=== PATIENT | male | born 1940 | race Caucasian/White ===

== ENCOUNTER 2017-09-30 21:27 | Emergency (ER) | payer MEDICARE, BC ==
[2017-09-30] MEDS ORDERED: ASPIRIN 81 MG TABLET, CHEWABLE PO ONE (21:45)
[2017-09-30] MEDS ORDERED: DILTIAZEM HCL INJ 25 MG/5 ML VIAL IV ONE (21:50)
[2017-09-30] MEDS ORDERED: DILTIAZEM HCL INJ 25 MG/5 ML VIAL ONE (21:52)
[2017-09-30] MEDS ORDERED: DILTIAZEM HCL/D5W 0 MG/0 ML RTUINJ IV ONE (21:52)
[2017-09-30 22:23] LABS: ABSOLUTE BASOPHILS # (AUTO) 0.1 10^3/uL (0.0-0.2); ABSOLUTE EOSINOPHILS # (AUTO) 0.1 10^3/uL (0.0-0.6); ABSOLUTE LYMPHOCYTES (AUTO) 1.8 10^3/uL (0.5-4.7); ABSOLUTE NEUT (AUTO) 9.2 10^3/uL (1.7-8.2); BASOPHILS % (AUTO) 0.6 % (0-2); EOSINOPHILS % (AUTO) 0.5 % (0-6); HEMATOCRIT 37.5 % (37.9-51.0); HEMOGLOBIN 12.8 g/dL (13.5-17.0); HGB HCT DIFFERENCE 0.9; LYMPHOCYTES % (AUTO) 14.5 % (13-45); MEAN CORPUSCULAR HEMOGLOBIN 29.6 pg (27.0-33.4); MEAN CORPUSCULAR VOLUME 87 fl (80-97); MONOCYTES % (AUTO) 8.4 % (3-13); RED BLOOD COUNT 4.31 10^6/uL (4.35-5.55); WHITE BLOOD COUNT 12.2 10^3/uL (4.0-10.5)
[2017-09-30 22:31] LABS: PROTHROMBIN TIME 13.4 SEC (11.4-15.4)
[2017-09-30 22:37] LABS: ALANINE AMINOTRANSFERASE 44 U/L (21-72); ALBUMIN 4.5 g/dL (3.5-5.0); ALKALINE PHOSPHATASE 82 U/L (38-126); ANION GAP 17 (5-19); ASPARTATE AMINO TRANSFERASE 33 U/L (17-59); BILIRUBIN,DIRECT 0.5 mg/dL (0.0-0.4); BILIRUBIN,TOTAL 0.8 mg/dL (0.2-1.3); BLOOD UREA NITROGEN 27 mg/dL (7-20); CALCIUM 9.3 mg/dL (8.4-10.2); CARBON DIOXIDE 24 mmol/L (22-30); CHLORIDE 99 mmol/L (98-107); CREATINE KINASE 234 U/L (55-170); CREATININE RESULT 1.89 mg/dL (0.52-1.25); GLUCOSE 150 mg/dL (75-110); POTASSIUM 4.1 mmol/L (3.6-5.0); SODIUM 139.7 mmol/L (137-145); TOTAL PROTEIN 7.7 g/dL (6.3-8.2)
--- NOTE | 2017-09-30 22:41 | RADIOLOGY REPORT (SQ) ---
EXAM DESCRIPTION: CHEST SINGLE VIEW COMPLETED DATE/TIME: 09/30/2017 10:33 pm REASON FOR STUDY: PALPITATIONS COMPARISON: 05/19/2013 EXAM PARAMETERS: NUMBER OF VIEWS: One view. TECHNIQUE: Single frontal radiographic view of the chest acquired. RADIATION DOSE: NA LIMITATIONS: None. FINDINGS: LUNGS AND PLEURA: No acute opacities, masses or pneumothorax. No pleural effusion. MEDIASTINUM AND HILAR STRUCTURES: Stable. HEART AND VASCULAR STRUCTURES: Heart normal in size. Normal vasculature. BONES: No acute findings. HARDWARE: Cardiac defibrillator. OTHER: No other significant finding. IMPRESSION: NO ACUTE RADIOGRAPHIC FINDING IN THE CHEST. TECHNICAL DOCUMENTATION: JOB ID: [id number] [place]-72 2010 [employer]- All Rights Reserved
[2017-09-30 23:02] LABS: CREATINE KINASE MB 5.02 ng/mL (<4.55)
[2017-09-30 23:07] LABS: TROPONIN I 0.075 ng/mL
--- NOTE | 2017-09-30 23:39 | ER Document Report ---
ED General - General Chief Complaint: Chest Pain Stated Complaint: PACEMAKER GOING OFF,POSSIBLE POST OP COMPLICATION Time Seen by Provider: 09/30/17 22:17 Mode of Arrival: Ambulatory Information source: Patient Notes: This is a 77-year-old man with a history of coronary artery disease, atrial fibrillation, with pacemaker and defibrillator, status post recent left femoropopliteal bypass (at [facility]). Patient was released this evening and drove home. He was in [place] in his car driving home when his defibrillator fired twice. He presents to the ER with palpitations in the setting of the pacemaker firing twice. He is noted to be in atrial fibrillation with a rapid ventricular rate (150s- 160s). Patient did stand up to urinate (he was given Lasix at [place] right before discharge). As he was standing to urinate at the side of the bed, patient's heart rate was noted to go up to 188 and he was promptly shocked again by his own pacemaker/defibrillator. This time, he was shocked into a sinus tachycardia. He was given some IV Diltiazem to keep his heart rate down below 110. Patient denies ever having chest pain, except for the actual pain from the defibrillator shock. TRAVEL OUTSIDE OF THE [place] IN LAST 30 DAYS: No - HPI Onset: Just prior to arrival Onset/Duration: Sudden Quality of pain: Dull Severity: Moderate Pain Level: 4 Associated symptoms: denies: Fever, Nausea, Vomiting Exacerbated by: Denies Relieved by: Denies Similar symptoms previously: Yes Recently seen / treated by doctor: Yes - Related Data Allergies/Adverse Reactions: coconut Allergy (Verified 09/30/17 22:16) Penicillins Allergy (Verified 09/30/17 22:16) Past Medical History - General Information source: Patient - Social History Smoking Status: Former Smoker Cigarette use (# per day): No Chew tobacco use (# tins/day): No Frequency of alcohol use: None Drug Abuse: None Lives with: Family Family History: CAD, DM Patient has suicidal ideation: No Patient has homicidal ideation: No - Past Medical History Cardiac Medical History: Reports: Hx Hypercholesterolemia, Hx Hypertension Endocrine Medical History: Reports: Hx Diabetes Mellitus Type 1 Renal/ Medical History: Denies: Hx Peritoneal Dialysis Past Surgical History: Reports: Other - Status post recent left femoropopliteal bypass. Review of Systems - Review of Systems Constitutional: denies: Chills, Fever EENT: No symptoms reported Cardiovascular: See HPI Respiratory: No symptoms reported Gastrointestinal: No symptoms reported Genitourinary: No symptoms reported Male Genitourinary: No symptoms reported Musculoskeletal: No symptoms reported Skin: No symptoms reported Hematologic/Lymphatic: No symptoms reported Neurological/Psychological: No symptoms reported Physical Exam - Vital signs Vitals: Resp 29 H 09/30/17 21:36 Notes: Physical exam: GENERAL: 77-year-old man, alert and oriented 3, initially tachycardic. HEAD: Atraumatic, normocephalic. EYES: Pupils equal round and reactive to light, extraocular movements intact, sclera anicteric, conjunctiva are normal. ENT: TMs normal, nares patent, oropharynx clear without exudates. Moist mucous membranes. NECK: Normal range of motion, supple without obvious mass or JVD. LUNGS: Breath sounds clear to auscultation bilaterally and equal. No wheezes rales or rhonchi. HEART: Initially tachycardic ABDOMEN: Soft, normoactive bowel sounds. No tenderness to palpation. No guarding, no rebound. No masses appreciated. EXTREMITIES: Status post left femoral bypass. Patient has good left dorsal pedal pulse. NEUROLOGICAL: Cranial nerves II through XII grossly intact. Normal speech, moving all extremities. PSYCH: Normal mood, normal affect. SKIN: Status post left femoral bypass Course - Re-evaluation Re-evalutation: 09/30/17 23:43 I discussed case with Dr. Natanael Guerrero who is willing to accept the patient. Currently, there are no beds in the patient is paid put on a wait list. I did discuss this with the patient and the . I have offered to call [facility] for transfer there but they wish to go to [facility]. Dr. Elias requests some IV magnesium. I have allowed the patient to take his own medicines for this evening. We did attempt to interrogate the pacemaker without success. However, as I mentioned in my note, I directly observed that the patient's heart rate was 188 when he was appropriately shocked into normal sinus rhythm. 09/30/17 23:45 - Vital Signs Vital signs: Temp Pulse Resp BP Pulse Ox 16 170/65 H 95 09/30/17 23:20 09/30/17 23:20 11/29/17 23:20 - Laboratory Result Diagrams: 09/30/17 21:50 09/30/17 21:50 Laboratory results interpreted by me: 09/30/17 09/30/17 09/30/17 21:50 21:50 21:50 WBC 12.2 H RBC 4.31 L Hgb 12.8 L Hct 37.5 L Absolute Neutrophils 9.2 H BUN 27 H Creatinine 1.89 H Est GFR ( Amer) 42 L Est GFR (Non-Af Amer) 35 L Glucose 150 H Direct Bilirubin 0.5 H Creatine Kinase 234 H CK-MB (CK-2) 5.02 H - Diagnostic Test Radiology reviewed: Image reviewed, Reports reviewed - Chest x-ray shows no infiltrates or effusions. - EKG Interpretation by Me Rhythm: A.Fib - EKG shows atrial fibrillation with a ventricular rate of 155, nonspecific ST changes. Critical Care Note - Critical Care Note Total time excluding time spent on procedures (mins): 60 Discharge - Discharge Clinical Impression: Atrial fibrillation with a rapid ventric, Status post defibrillation firing Condition: Stable Disposition: [facility] Referrals: JINA ALBARADO MD [Primary Care Provider] - Follow up as needed
[2017-09-30] MEDS: MAGNESIUM SULFATE/D5W 1 GM/100 ML RTUPB IV SCH (23:48)
[2017-10-01] MEDS: MAGNESIUM SULFATE/D5W 1 GM/100 ML RTUPB IV SCH (00:45)
[2017-10-01] MEDS ORDERED: DILTIAZEM HCL INJ 25 MG/5 ML VIAL IV ONE (04:32)
[2017-10-01] MEDS ORDERED: DILTIAZEM HCL/D5W 125 MG/125 ML RTUINJ IV PRN (04:32)
[2017-10-01] MEDS ORDERED: DILTIAZEM HCL INJ 25 MG/5 ML VIAL ONE (04:33)
[2017-10-01] MEDS ORDERED: DILTIAZEM HCL/D5W 125 MG/125 ML RTUINJ IV ONE (04:34)
[2017-10-01] MEDS ORDERED: METOPROLOL TARTRATE PF/INJ 5 MG/5 ML SDV IV ONE (05:16)
--- NOTE | 2017-10-01 07:55 | EKG REPORT ---
SEVERITY:- ABNORMAL ECG - SINUS RHYTHM PROBABLE INFERIOR INFARCT, AGE INDETERMINATE CONSIDER ANTERIOR INFARCT ABNORMAL T, CONSIDER ISCHEMIA, ANT-LAT LEADS : Confirmed by: Russ Luna MD 01-Oct-2017 07:55:00
--- NOTE | 2017-10-01 07:56 | EKG REPORT ---
SEVERITY:- ABNORMAL ECG - ATRIAL FIBRILLATION WITH RAPID V-RATE PROBABLE INFERIOR INFARCT, OLD BORDERLINE R WAVE PROGRESSION, ANTERIOR LEADS REPOLARIZATION ABNORMALITY, PROB RATE RELATED LATERAL LEADS ARE ALSO INVOLVED : Confirmed by: Russ Luna MD 01-Oct-2017 07:56:21
[2017-10-01] MEDS ORDERED: INSULIN REG, HUMAN 100 UNIT/ML 3 ML VIAL (PYX) SUBCUT ONE (17:33)
[2017-10-01] MEDS ORDERED: OXYCODONE HCL IR 5 MG TABLET PO ONE (19:16)
[2017-10-01 19:51] VITALS: BP 189/89
== END 2017-10-01 19:30 | disposition short-term general hospital (02) ==
LOC: ER 21:27
DX: I48.91 Unspecified atrial fibrillation (principal); Z95.810 Presence of automatic (implantable) cardiac defibrillator; Z98.62 Peripheral vascular angioplasty status; I25.10 Atherosclerotic heart disease of native coronary artery without angina pectoris; E11.9 Type 2 diabetes mellitus without complications; I10 Essential (primary) hypertension; Z87.891 Personal history of nicotine dependence; Z91.018 Allergy to other foods; Z88.0 Allergy status to penicillin; Z82.49 Family history of ischemic heart disease and other diseases of the circulatory system
CPT/HCPCS: 93005; 99291; 96375; 96365; 96367; 36415; 82553; 82962; 82550; 83735; 85025; 85610; 80053; 84484; 71010; 93010; J3490 ×4; J3475 ×2; A9270 ×2; J1815

== ENCOUNTER 2020-11-25 22:53 | Emergency (ER) | payer MEDICARE, BC ==
--- NOTE | 2020-11-25 23:34 | ER Document Report ---
ED Medical Screen (RME) - General Stated Complaint: NAUSEA AND VOMITING Time Seen by Provider: 11/25/20 23:26 Primary Care Provider: JINA ALBARADO DO [Primary Care Provider] - Follow up as needed Notes: 80-year-old male presents emergency department with a chief complaint of nausea and vomiting. States that he started vomiting this evening. He was brought in via EMS and was given Zofran. States that he feels better, but still feels a "churning" in his stomach. Patient has history of a triple bypass a year and a half ago. He was also recently at [facility] for stents that were placed in his groins and right leg. Denies any chest pain. Denies any contact with anybody who tested positive for COVID-19. He was recently tested and was negative. Exam: Alert and oriented. I have greeted and performed a rapid initial assessment of this patient. A comprehensive ED assessment and evaluation of the patient, analysis of test results and completion of medical decision making process will be conducted by an additional ED providers. TRAVEL OUTSIDE OF THE [place] IN LAST 30 DAYS: No - Related Data Allergies/Adverse Reactions: coconut Allergy (Verified 09/30/17 22:16) Penicillins Allergy (Verified 09/30/17 22:16) Past Medical History - Past Medical History Cardiac Medical History: Reports: Hx Hypercholesterolemia, Hx Hypertension Endocrine Medical History: Reports: Hx Diabetes Mellitus Type 1 Renal/ Medical History: Denies: Hx Peritoneal Dialysis Past Surgical History: Reports: Hx Cardiac Surgery - pacemaker/defib, Other - Status post recent left femoropopliteal bypass. Physical Exam - Vital signs Vitals: Temp Pulse Resp BP Pulse Ox 98.1 F 78 15 136/73 H 100 11/25/20 23:02 11/25/20 23:02 11/25/20 23:02 11/25/20 23:02 11/25/20 23:02 Course - Vital Signs Vital signs: Temp Pulse Resp BP Pulse Ox 98.1 F 78 15 136/73 H 100 11/25/20 23:02 11/25/20 23:02 11/25/20 23:02 11/25/20 23:02 11/25/20 23:02 Doctor's Discharge - Discharge Referrals: JINA ALBARADO DO [Primary Care Provider] - Follow up as needed
[2020-11-25 23:58] LABS: ABSOLUTE BASOPHILS # (AUTO) 0.1 10^3/uL (0.0-0.2); ABSOLUTE EOSINOPHILS # (AUTO) 0.1 10^3/uL (0.0-0.6); ABSOLUTE LYMPHOCYTES (AUTO) 1.2 10^3/uL (0.5-4.7); ABSOLUTE MONOCYTES (AUTO) 0.6 10^3/uL (0.1-1.4); ABSOLUTE NEUT (AUTO) 9.1 10^3/uL (1.7-8.2); BASOPHILS % (AUTO) 1.2 % (0-2); EOSINOPHILS % (AUTO) 0.5 % (0-6); HEMATOCRIT 33.1 % (37.9-51.0); LYMPHOCYTES % (AUTO) 10.8 % (13-45); MEAN CORPUSCULAR HEMOGLOBIN 28.7 pg (27.0-33.4); MEAN CORPUSCULAR HGB CONC 33.2 g/dL (32.0-36.0); MEAN CORPUSCULAR VOLUME 86 fl (80-97); MONOCYTES % (AUTO) 5.6 % (3-13); PLATELET COUNT 401 10^3/uL (150-450); RED BLOOD COUNT 3.84 10^6/uL (4.35-5.55); RED CELL DISTRIBUTION WIDTH 13.5 % (11.5-14.0); SEGMENTED NEUTROPHILS % (AUTO) 81.9 % (42-78); TOTAL CELLS COUNTED % (AUTO) 100 %; WHITE BLOOD COUNT 11.1 10^3/uL (4.0-10.5)
[2020-11-26 00:19] LABS: ALBUMIN 3.6 g/dL (3.5-5.0); ALKALINE PHOSPHATASE 139 U/L (38-126); ANION GAP 9 (5-19); ASPARTATE AMINO TRANSFERASE 26 U/L (17-59); BILIRUBIN,DIRECT 0.2 mg/dL (0.0-0.4); BILIRUBIN,TOTAL 0.9 mg/dL (0.2-1.3); BLOOD UREA NITROGEN 32 mg/dL (7-20); CALCIUM 9.2 mg/dL (8.4-10.2); CARBON DIOXIDE 29 mmol/L (22-30); CHLORIDE 96 mmol/L (98-107); GLUCOSE 177 mg/dL (75-110); POTASSIUM 3.9 mmol/L (3.6-5.0); TOTAL PROTEIN 6.6 g/dL (6.3-8.2)
--- NOTE | 2020-11-26 00:39 | RADIOLOGY REPORT (SQ) ---
EXAM DESCRIPTION: X-ray single view chest. CLINICAL HISTORY: 80 years Male, vomiting; hx of [place] COMPARISON: 09/30/2017 and 05/19/2013 TECHNIQUE: Single portable x-ray view of the chest performed on 11/26/2020 at 12:11 AM FINDINGS: The lungs are well expanded and are clear. There is no evidence of a pneumothorax. The cardiac silhouette is normal in size and configuration. There are remote postsurgical changes of the mediastinum. The mediastinal contours are normal. No acute osseous abnormality is identified. No acute soft tissue abnormalities are seen. Lines and tubes: There is a grossly stable left subclavian bipolar AICD. Free air: None IMPRESSION: No evidence of acute intrathoracic disease.
[2020-11-26] MEDS ORDERED: ONDANSETRON 4 MG TAB.RAPDIS PO ONE (02:41)
[2020-11-26] MEDS ORDERED: ONDANSETRON ODT 4 MG TAB (6 TAB/ER DISP) PO PRN (02:42)
--- NOTE | 2020-11-26 02:48 | ER Document Report ---
ED GI/ - General Chief Complaint: Nausea/Vomiting Stated Complaint: NAUSEA AND VOMITING Time Seen by Provider: 11/25/20 23:26 Primary Care Provider: JINA ALBARADO DO [ASSOCIATE] - Follow up tomorrow Mode of Arrival: Medic Information source: Patient Notes: 80-year-old male presented to ED for complaint of nausea and vomiting. He states that 8:00 vomiting and he stopped vomiting about 930 last night after EMS came and gave him Zofran IV. He states he has not vomited since then and he is actually felt much better. He states he is pain-free at this time. He states that the last time he went to [facility] they placed him back on Xarelto and whenever he is on Xarelto he does get nausea and vomiting. He does have an extensive cardiac history and surgical history. He states he has not had any chest pain at all throughout this whole episode. I have reviewed his labs and x-ray with him and his daughter. Daughter states she will get him a cardiology appointment today or tomorrow. States he did have a cardiac bypass in [place] about a year and half ago and recently was seen at [facility] to have stents in his groin and right leg with skin grafts. He states he is also had the other leg with stents and skin grafts and has had multiple cardiac surgeries to include pacemaker defibrillator. He states the only symptoms he had tonight was nausea and vomiting that was completely relieved with the first dose of Zofran. Constitutional: Negative for fever. HENT: Negative for sore throat. Eyes: Negative for visual changes. Cardiovascular: Negative for chest pain. Respiratory: Negative for shortness of breath. Gastrointestinal: States he had nausea and vomiting between 8 and 9:30 PM but has had no nausea or vomiting since 9:30 PM when he received his first dose of Zofran. He states at first he had a churning feeling in his stomach but now has no pain or discomfort Genitourinary: Negative for dysuria. Musculoskeletal: Negative for back pain. Skin: Negative for rash. Neurological: Negative for headaches, weakness or numbness. 10 point ROS negative except as marked above and in HPI. VITAL SIGNS: Within normal limits. GENERAL: No acute distress, non-toxic appearance. HEAD: Normal with no signs of head trauma. NECK: Normal range of motion, no tenderness, supple, no lymphadenopathy, No adenopathy, no JVD. CHEST: Clear breath sounds bilaterally. No wheezes, rales, or rhonchi. CARDIAC: Regular rate and rhythm. S1 and S2, without murmurs, gallops, or rubs. VASCULAR: No Edema. Peripheral pulses normal and equal in all extremities. ABDOMEN: Normal and soft with no tenderness, no masses or pulsatile masses. GASTROINTESTINAL: Bowel sounds normal rectal exam completed chaperoned by Judith Monsalve RN GENITOURINARY: Normal, No tenderness LYMPATHTIC: No lymphadenopathy noted. MUSCULOSKELETAL: Good range of motion of all major joints. Extremities without clubbing, cyanosis or edema. NEUROLOGICAL: Alert and oriented x 3. No focal sensory or strength deficits. Speech normal. Follows commands appropriately. PSYCHIATRIC: Normal Affect, judgement and mood. SKIN: Normal appearance with no rashes or lesions. TRAVEL OUTSIDE OF THE [place] IN LAST 30 DAYS: No - HPI Patient complains to provider of: Vomiting - Nausea and vomiting that was dark about 8:52 PM tonight no nausea or vomiting since then. No: Abdominal pain Onset: This evening Timing/Duration: Gone Quality of pain: No pain Severity at maximum: Mild - "Churning "in his stomach at first Severity in ED: None Pain Level: Denies Associated symptoms: Nausea, Vomiting Exacerbated by: Denies Relieved by: Denies Similar symptoms previously: Yes Recently seen / treated by doctor: Yes - Related Data Allergies/Adverse Reactions: coconut Allergy (Verified 09/30/17 22:16) metformin Allergy (Verified 11/26/20 03:09) Penicillins Allergy (Verified 09/30/17 22:16) Home Medications: xarelto. oxycodone Past Medical History - General Information source: Patient - Social History Smoking Status: Former Smoker Chew tobacco use (# tins/day): No Frequency of alcohol use: Rare Drug Abuse: None Lives with: Alone Family History: CAD, DM Patient has suicidal ideation: No Patient has homicidal ideation: No - Past Medical History Cardiac Medical History: Reports: Hx Coronary Artery Disease, Hx Hypercholesterolemia, Hx Hypertension Pulmonary Medical History: Reports: None EENT Medical History: Reports: None Neurological Medical History: Reports: None Endocrine Medical History: Reports: Hx Diabetes Mellitus Type 2 Renal/ Medical History: Reports: Other - Stage III kidney failure Malignancy Medical History: Reports Hx Skin Cancer - Neck GI Medical History: Reports: Hx Colonoscopy, Hx Endoscopy Musculoskeletal Medical History: Reports Hx Musculoskeletal Trauma - Right leg Skin Medical History: Reports None Psychiatric Medical History: Reports: None Traumatic Medical History: Reports: Hx Fractures Infectious Medical History: Reports: None Past Surgical History: Reports: Hx Appendectomy, Hx Cardiac Surgery - pacemaker/defib, multiple cardiac surgeries, Hx Cholecystectomy, Hx Coronary Artery Bypass Graft - Quadruple, Hx Pacemaker - Pacemaker defibrillator, Hx Vascular Surgery - bilateral femoral arterial graft, Other - Skin cancer removed from neck - Immunizations Immunizations up to date: Yes Hx Diphtheria, Pertussis, Tetanus Vaccination: Yes Physical Exam - Vital signs Vitals: Temp Pulse Resp BP Pulse Ox 98.1 F 78 15 136/73 H 100 11/25/20 23:02 11/25/20 23:02 11/25/20 23:02 11/25/20 23:02 11/25/20 23:02 Course - Vital Signs Vital signs: Temp Pulse Resp BP Pulse Ox 97.6 F 69 18 160/65 H 100 11/26/20 03:15 11/26/20 03:15 11/26/20 03:15 11/26/20 03:15 11/26/20 03:15 - Laboratory Results Result Diagrams: 11/25/20 23:38 11/25/20 23:38 Laboratory Results Interpreted: 11/25/20 11/25/20 23:38 23:38 WBC 11.1 H RBC 3.84 L Hgb 11.0 L Hct 33.1 L Lymph % (Auto) 10.8 L Absolute Neuts (auto) 9.1 H Seg Neutrophils % 81.9 H Sodium 134.0 L Chloride 96 L BUN 32 H Creatinine 2.00 H Est GFR ( Amer) 39 L Est GFR (MDRD) Non-Af 32 L Glucose 177 H Alkaline Phosphatase 139 H Critical Laboratory Results Reviewed: No Critical Results - Radiology Results Critical Radiology Results Reviewed: No Critical Results Discharge - Discharge Clinical Impression: Nausea & vomiting Qualifiers: Vomiting type: unspecified Vomiting Intractability: non-intractable Qualified Code(s): R11.2 - Nausea with vomiting, unspecified Condition: Stable Disposition: HOME, SELF-CARE Additional Instructions: VOMITING: Vomiting (or nausea without vomiting) can be caused by many other different problems. It can mean that something's wrong with the stomach, such as ulcers or inflammation or the intestinal tract, such as appendicitis. But it can also be a symptom of a problem that has nothing to do with the stomach or intestines. Vomiting is common with severe headaches, earaches, tonsillitis, and kidney infections, etc. We see it with pneumonia or heart attacks. Drugs can cause nausea and vomiting. Many abdominal problems cause vomiting; for example, gallstones, kidney stones, pancreatitis, and intestinal obstruction (blocked bowels). In most cases, curing the vomiting depends on fixing the problem that caus ed it. For temporary relief, we may use an anti-nausea medicine. For home use, we can prescribe suppositories, chewable pills, pills that dissolve in the mouth, or liquid anti-nausea drugs. If the vomiting seems to be caused by a problem in the stomach, acid-suppressing drugs may be prescribed as well. It's important to avoid dehydration. Sip small amounts of clear liquids (soft drinks, tea, broth, etc) . Try to take fluids frequently even if you are vomiting to prevent dehydration. Take increasing amounts of fluid and when liquids are being consumed successfully, advance to small amounts of bland food (toast, soups, mashed potatoes, etc.) until you are able to resume a regular diet. Avoid aspirin, tobacco, and alcohol. If the vomiting worsens, if the problem that's making you vomit worsens, or if there's evidence of bleeding in the stomach (such as black, tarry stool, or bloody or black vomit), you should return immediately. Also, return if abdominal pain worsens or becomes localized to one area or you develop high fever. Call your doctor if you aren't improved in 24 hours. Have given you a copy of all of your lab work and your x-ray. 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 I did speak with your daughter and she stated she would ensure that you had follow-up scheduled. INTRAVENOUS (I V) FLUIDS: As part of your care today, you received intravenous (IV) fluids. IV fluids are administered to patients who are dehydrated or to those who have certain chemical (electrolyte) abnormalities that need correcting. ANTINAUSEA MEDICATION: You have been given a medication to suppress nausea and vomiting. This type of medication can be given as a shot, pill, or suppository. It will usually last for many hours. Pills and shots usually last six to eight hours. For the typical illness, only one or two doses of the medication may be necessary. Mild lightheadedness may occur. This type of medicine can cause drowsiness. Do not drive or operate dangerous machinery while under its influence. Do not mix with alcohol. See your doctor at once if you have muscle spasms or tightness, or uncontrollable motions (particularly of the neck, mouth, or jaw). Persistent vomiting or severe lightheadedness should also be evaluated by the physician. FOLLOW-UP CARE: If you have been referred to a physician for follow-up care, call the physicians office for an appointment as you were instructed or within the next two days. If you experience worsening or a significant change in your symptoms, notify the physician immediately or return to the Emergency Department at any time for re-evaluation. Forms: Elevated Blood Pressure Referrals: JINA ALBARADO DO [ASSOCIATE] - Follow up tomorrow
[2020-11-26 03:22] VITALS: BP 160/65
--- NOTE | 2020-11-26 06:10 | EKG REPORT ---
SEVERITY:- ABNORMAL ECG - SINUS RHYTHM PROBABLE LVH WITH SECONDARY REPOL ABNRM PROLONGED QT INTERVAL : Confirmed by: Russ Luna MD 26-Nov-2020 06:09:49
--- OUTSIDE RECORDS SUMMARY | 2020-11-28 09:19 | XMS REPORT ---
:1940 Author Organization [facility] Address [facility] [address] [place] [address] Care Team Providers Name Role Phone [facility] Primary Care Physician Unavailable Michelle Ann Attending Clinician Unavailable Michelle Ann Attending Clinician Unavailable Sample, DO A Attending Clinician Unavailable Sample, DO A Attending Clinician Unavailable SHIN Leigh MD Attending Clinician Unavailable Agatha WALL, FAC, [facility] Attending Clinician Unavailable Pedro Attending Clinician Unavailable Pedro Attending Clinician Unavailable MD Joya Snider Attending Clinician Unavailable INDIRA MILLER Attending Clinician Unavailable SHARON PETERSON Attending Clinician Unavailable MD Sasha Pelletier Admitting Clinician Unavailable Sample, DO A Admitting Clinician Unavailable MD Kris F Admitting Clinician Unavailable INDIRA MILLER Admitting Clinician Unavailable SHARON PETERSON Admitting Clinician Unavailable Allergies, Adverse Reactions, Alerts Allergy Allergy Status Severity Reaction(s) Onset Inactive Treating C omments Name Type Date Date Clinician [place] Propensity Inactive High Hives 2016-11 to adverse 1-15 reactions 00:00: 00 Penicillins Propensity Inactive High Swelling 2015-11 to adverse 0-25 reactions 00:00: 00 Penicillins Propensity Active High Swelling 2015-11 to adverse 0-25 reactions 00:00: 00 penicillin Drug Active Severe swelling allergy metFORMIN Drug Active allergy Penicillins Penicillin Active s Medications Ordered Filled Start Stop Current Ordering Indication Dosage Frequency Signature Comments Components Medication Medication Date Date Medication? Clinician (SIG) Name Name potassium Yes 20meq 20 mEq = 1 chloride 20 1-20 tab(s), mEq oral 10:31: PO, Daily, tablet, 00 # 30 extended tab(s), 3 release Refill(s), Pharmacy: [facility] [id number] [facility], 175.2, cm, 11/19/20 5:37:00 EST, Height, 80.1, kg, 11/21/20 4:39:00 EST, Weight sertraline 0 Yes 50mg 50 mg = 1 50 mg oral 1-20 tab(s), tablet 08:58: PO, Daily, 00 # 30 tab(s), 1 Refill(s), Pharmacy: [facility], 175.2, cm, 11/19/20 5:37:00 EST, Height, 80.1, kg, 11/21/20 4:39:00 EST, Weight terazosin 1 0 Yes 2mg 2 mg = 2 mg oral 1-20 cap(s), capsule 08:58: PO, QHS, # 00 60 cap(s), 1 Refill(s), Pharmacy: [facility], 175.2, cm, 11/19/20 5:37:00 EST, Height, 80.1, kg, 11/21/20 4:39:00 EST, Weight Plavix 75 0 Yes 75mg 75 mg = 1 mg oral 1-20 tab(s), tablet 08:57: PO, Daily, 00 # 30 tab(s), 3 Refill(s), Pharmacy: [place] [id number] [facility], 175.2, cm, 11/19/20 5:37:00 EST, Height, 80.1, kg, 11/21/20 4:39:00 EST, Weight Lasix 40 mg Yes 40mg 40 mg = 1 oral tablet 1-20 tab(s), 08:57: PO, Daily, 00 # 30 tab(s), 1 Refill(s), Pharmacy: [facility], 175.2, cm, 11/19/20 5:37:00 EST, Height, 80.1, kg, 11/21/20 4:39:00 EST, Weight oxyCODONE 5 0 Yes 1-2 tabs, mg oral 1-20 PO, q4h, tablet 08:57: as needed 00 for pain, # 42 tab(s), 0 Refill(s), Pharmacy: [facility], 175.2, cm, 11/19/20 5:37:00 EST, Height, 80.1, kg, 11/21/20 4:39:00 EST, Weight Xarelto 20 0 Yes 20mg 20 mg = 1 mg oral 1-20 tab(s), tablet 08:53: PO, qPM, # 00 30 tab(s), 1 Refill(s), Pharmacy: [place] [id number] [facility], 175.2, cm, 11/19/20 5:37:00 EST, Height, 80.1, kg, 11/21/20 4:39:00 EST, Weight Cipro 500 2020-0 2020- Yes 500mg 500 mg = 1 mg oral 1-20 01-27 tab(s), tablet 08:53: 08:53 PO, BID, # 00 :00 14 tab(s), 0 Refill(s), Pharmacy: [place] [id number] [facility], 175.2, cm, 11/19/20 5:37:00 EST, Height, 80.1, kg, 11/21/20 4:39:00 EST, Weight Toprol-XL 0 Yes 100mg 100 mg = 1 100 mg oral 1-20 tab(s), tablet, 08:52: PO, Daily, extended 00 # 30 release tab(s), 1 Refill(s), Pharmacy: [place] [id number] [facility], 175.2, cm, 11/19/20 5:37:00 EST, Height, 80.1, kg, 11/21/20 4:39:00 EST, Weight oxyCODONE 0 Adarsh Birch 1 oxyCODONE HCl - 5 MG -07 Sample HCl - 5 MG Oral Tablet 00:00: D.O. Oral 00 Tablet TAKE 1 TABLET EVERY 4 HOURS NEEDED FOR PAIN. Quantity: 36 Refills: 0 Sample Eyal Rocha Start : 08-Nov-2020 Active Xarelto 20 0 Adarsh Birch 1 QD Xarelto 20 MG Oral 1-07 Sample MG Oral Tablet 00:00: D.O. Tablet 00 TAKE 1 TABLET DAILY Quantity: 21 Refills: 0 Sample Eyal Rocha Start : 08-Nov-2020 Active Victoza 18 0 Yes 1.8mg 1.8 mg, 0 mg/3 mL -06 Refill(s) subcutaneou 10:09: s solution 00 NovoLOG 100 2020-0 Yes 51 5 unit(s), units/mL -06 0 injectable 10:08: Refill(s) soln 00 empaglifloz Yes 10mg 10 mg = 1 in 10 mg 1-06 tab(s), oral tablet 10:07: PO, 00 qBreakfast , # 30 tab(s), 0 Refill(s) cholecalcif Yes 0 marco antonio 1000 1-06 Refill(s) intl units 10:04: (25 mcg) 00 oral capsule Lantus Yes 401 40 Solostar 1-05 unit(s), Pen 100 12:39: Subcutaneo units/mL 00 us, Daily subcutaneou s solution methocarbam Yes 1000mg 1,000 mg = ol 500 mg 1-05 2 tab(s), oral tablet 12:39: PO, BID 00 melatonin 5 2019-11 No 5mg 5 mg = 1 mg oral 0-22 tab(s), tablet 14:14: PO, QHS, 00 for insomnia Toprol-XL 2019-11 No 200mg 200 mg = 1 200 mg oral 0-22 tab(s), tablet, 14:14: PO, Daily extended 00 release aspirin 81 2019-11 No 81mg 81 mg = 1 mg oral 0-22 tab(s), delayed 14:13: PO, Daily release 00 tablet atorvastati 2019-11 Yes 80mg 80 mg = 1 n 80 mg 0-22 tab(s), oral tablet 14:13: PO, Daily 00 amLODIPine 2019-11 No 5mg 5 mg = 0.5 10 mg oral 0-22 tab(s), tablet 14:12: PO, Daily 00 Atorvastati Yes Jakob 1 Atorvastat n Calcium 6-11 Eyal NICHOLSON in Calcium 80 MG Oral 00:00: 80 MG Oral Tablet 00 Tablet TAKE 1 TABLET AT BEDTIME. Quantity: 30 Refills: 5 Eyal NICHOLSON Jakob Start : 9Active Melatonin 5 No Jakob Melatonin MG Oral 6-11 Eyal PA-C 5 MG Oral Tablet 00:00: Tablet 00 TAKE 1 TAB BY MOUTH AT BEDTIME Refills: 0 Eyal NICHOLSON Jakob Start : 9Active rosuvastati No 20mg 20 mg = 1 n 20 mg 4-24 tab(s), oral tablet 18:28: PO, QHS, 0 00 Refill(s) traMADol 50 No 1-2 tabs, mg oral 4-24 PO, TID, tablet 18:28: Pain, 00 moderate (Level 3-8), 0 Refill(s) amLODIPine No 10mg 10 mg = 1 10 mg oral 4-24 tab(s), tablet 18:25: PO, Daily, 00 0 Refill(s) Lantus 100 No 421 See units/mL -24 Instructio insulin(inp 18:24: ns, 40 atient) 00 unit(s) Subcutaneo us Daily, 0 Refill(s) metoprolol No 100mg 100 mg = 1 succinate 4-22 cap(s), 100 mg oral 05:41: PO, BID, 0 capsule, 00 Refill(s) extended release isosorbide No 30mg 30 mg = 1 mononitrate 4-22 tab(s), 30 mg oral 05:39: PO, qAM, # tablet, 00 30 tab(s), extended 0 release Refill(s) empaglifloz No 10mg 10 mg = 1 in 10 mg 4-22 tab(s), oral tablet 05:37: PO, 00 qBreakfast , # 30 tab(s), 0 Refill(s) Tikosyn 250 No 250ug 250 mcg = mcg oral 02-21 1 cap(s), capsule 05:35: PO, BID, # 00 180 cap(s), 0 Refill(s) Plavix 75 No 75mg 75 mg = 1 mg oral 4-22 tab(s), tablet 05:33: PO, Daily, 00 # 30 tab(s), 0 Refill(s) Vitamin D3 No 1000[iU 1,000 1000 intl 06-04 ] Internatio units oral 11:54: nal_Unit(s capsule 00 ) = 1 cap(s), PO, Daily nitroglycer Yes .4mg 0.4 mg = 1 in 0.4 mg 8-03 tab(s), sublingual 11:53: Sublingual tablet 00 , q5min, for chest pain Zantac 150 No 150mg 150 mg = 1 oral tablet 8-03 tab(s), 11:53: PO, BID, 00 Indigestio n Eliquis 5 No 5mg 5 mg = 1 mg oral 8-03 tab(s), tablet 11:47: PO, BID 00 Lasix 20 mg No 20mg 20 mg = 1 oral tablet 8-03 tab(s), 11:47: PO, Daily 00 Toprol XL 2017- Yes QD Toprol XL 200 MG Oral 6-05 200 MG Tablet 00:00: Oral Extended 00 Tablet Release 24 Extended Hour Release 24 Hour TAKE 1 TABLET ONCE DAILY. Refills: 0 Start : 06-Apr-2018 Active warfarin 2017- No 5mg Take 5 mg Take 5 mg (COUMADIN) 11-1211 by mouth by johana th 5 MG tablet 14:48: 00:00 Take as Take as 37 :00 directed. directed. Every day Every day except except Thursday and and Thursday. Thursday. enoxaparin 2016-11 No 90MG Inject 0.6 Inj ect (LOVENOX) 12-03 12-05 mL (90 mg 0.6 mL 150 mg/mL 00:00: 23:59 total) (90 mg injection 00 :00 under the total) skin every under the twelve skin (12) every hours. for twelve 4 days (12) hours. for 4 days oxyCODONE 2016-11- No 5MG Take 1 Take 1 (ROXICODONE 11-30 12-06 tablet (5 tabl et (5 ) 5 MG 00:00: 23:59 mg total) mg total ) immediate 00 :00 by mouth by mout h release every every tablet thirty thirty (30) (30) minutes as minutes needed. as for up to needed. 7 days for up to 7 days warfarin 2016-11 No 7.5mg Take 7.5 Take 7. 5 (COUMADIN) 11-29 01-11 mg by mg by 7.5 MG 15:34: 00:00 mouth mouth tablet 40 :00 Every Every Thursday and and Thursday. Thursday. warfarin 2016-11 No 7.5MG Take 7.5 Take 7. 5 (COUMADIN) 1-22 11-22 mg by mg by 5 MG tablet 16:51: 00:00 mouth Take mo uth 09 :00 as Take as directed. directed. Thursday and and Thursday. Thursday. enoxaparin 2016-11- No Inject Inject (LOVENOX) 1-22 11-29 under the under the 150 mg/mL 09:19: 00:00 skin every skin injection 54 :00 twelve every (12) twelve hours. (12) hours. dofetilide 2016-11 No 250ug Take 250 Take 250 (TIKOSYN) 1-15 mcg by mcg by 250 MCG 11:02: mouth Two mouth T wo capsule 29 (2) times (2) time s a day. a day. ranitidine 2016-11 No 300mg Take 300 Take 300 (ZANTAC) 1-15 mg by mg by 150 MG 11:02: mouth mouth tablet 29 daily as daily as needed for needed heartburn. for heartburn . sotalol 2016-11- No 80mg Take 80 mg Take 8 0 (BETAPACE) 1-15 11-15 by mouth mg by 80 MG 11:01: 00:00 daily. mouth tablet 57 :00 daily. furosemide 2016-11 No 20mg Take 20 mg Richard e 20 (LASIX) 20 1-15 by mouth mg by MG tablet 10:59: daily. mouth 18 daily. insulin 2016-11 No 15U Inject 15 Inject 15 aspart 1-15 Units Units (NOVOLOG 10:59: under the under the FLEXPEN) 17 skin Take skin Ta ke 100 unit/mL as as injection directed. direct ed. pen Before Before lunch and lunch and dinner. dinner. Furosemide 2016-11 Adarsh Winslow Furosemide 20 MG Oral 0-16 Russ D.O. 20 MG Oral Tablet 00:00: Tablet 00 Take 1 tablet by mouth daily Quantity: 30 Refills: 3 Russ D.OGoldy Hwang Start : 7Active amitriptyli Yes 25mg 25 mg = 1 ne 25 mg -09 tab(s), oral tablet 11:10: PO, QHS, # 00 180 tab(s), 0 Refill(s) sertraline No 50mg 50 mg = 100 mg oral 09 0.5 tablet 11:05: tab(s), 00 PO, Daily, # 30 tab(s), 0 Refill(s) terazosin 2 No 2mg 2 mg = 1 mg oral 09 cap(s), capsule 11:04: PO, QHS, # 00 30 cap(s), 0 Refill(s) methocarbam 1000mg 1,000 mg = ol 500 mg 11-10 2 tab(s), oral tablet 11:02: 11:02 PO, BID, 00 :00 muscle spasms, # 80 tab(s), 0 Refill(s) sodium 2015-11 No 50mL/h Sodium chloride -21 Chloride (NS) 0.9 % 11:00: 0.9 % infusion 00 Intravenou s Solution amLODIPine 2015-11 No 5MG Take 5 mg Take 5 mg (NORVASC) 5 1-21 by mouth by mo uth MG tablet 10:45: daily. daily. 35 Takes 1/2 Takes 1/2 tab daily tab daily cholecalcif 2015-11 No 1000U Take 1,000 Ta ke marco antonio, 1-21 Units by 1,000 vitamin D3, 10:45: mouth Units b y (VITAMIN 35 daily. mouth D3) 1,000 daily. unit capsule insulin 2015-11 No 30U Inject 30 Inject 30 glargine 1-21 Units Units (LANTUS 10:45: under the under t he SOLOSTAR) 35 skin skin 100 unit/mL daily. daily. (3 mL) injection pen insulin 2015-11 Yes 40U Inject 40 Inject 40 glargine 1-21 Units Units (LANTUS 10:45: under the under t he SOLOSTAR) 35 skin skin 100 unit/mL daily. daily. (3 mL) injection pen cholecalcif 2015-11 Yes 1000U Take 1,000 Ta ke marco antonio, 1-21 Units by 1,000 vitamin D3, 10:45: mouth Units b y (VITAMIN 35 daily. mouth D3) 1,000 daily. unit capsule amLODIPine 2015-11 Yes 2.5mg Take 2.5 Take 2.5 (NORVASC) 5 1-21 mg by mg by MG tablet 10:45: mouth mouth 35 daily. daily. isosorbide 2015-11 No 30mg Take 30 mg Richard e 30 mononitrate 1-21 11-21 by mouth mg by (IMDUR) 30 10:45: 00:00 daily. mouth MG 24 hr 29 :00 daily. tablet gabapentin 2015-11 No 300mg Take 300 Take 300 (NEURONTIN) 1-21 11-21 mg by mg by 300 MG 10:38: 00:00 mouth mouth capsule 36 :00 nightly. nightly. aspirin 2015-11 No 81MG Take 81 mg Take 8 1 (ECOTRIN) 0-26 by mouth mg by 81 MG 10:43: daily. mouth tablet 00 daily. atorvastati 2015-11 No 80MG Take 80 mg Ta ke 80 n (LIPITOR) 0-26 by mouth mg by 80 MG 10:43: daily. 1/2 mouth tablet 00 tablet daily. 1/2 tablet atorvastati 2015-11 Yes 40mg Take 40 mg Ta ke 40 n (LIPITOR) 0-26 by mouth mg by 80 MG 10:43: daily. mouth tablet 00 daily. aspirin 2015-11- No 81mg Take 81 mg Take 8 1 (ECOTRIN) 0-26 11-29 by mouth mg by 81 MG 10:43: 00:00 daily. mouth tablet 00 :00 daily. clopidogrel 2015-11 No 75MG Take 75 mg Ta ke 75 (PLAVIX) 75 0-25 by mouth mg by mg tablet 11:28: daily. mouth 06 daily. HYDROcodone 2015-11 No 1{tbl} Q6H Take 1 Take 1 -acetaminop 0-25 tablet by tabl et by elissa (NORCO 11:28: mouth mouth 10-325) 06 every six every si x 10-325 mg (6) hours (6) ho urs per tablet as needed as ne eded for pain. for pain. insulin 2015-11 No Inject Inject aspart 0-25 under the under the (NOVOLOG 11:28: skin Three skin FLEXPEN) 06 (3) times Three ( 3) 100 unit/mL a day times a injection before day pen meals. before meals. methocarbam 2015-11 No 500MG Take 500 Take 500 ol 0-25 mg by mg by (ROBAXIN) 11:28: mouth Two mouth Two 500 MG 06 (2) times (2) times tablet a day. a day. rosuvastati 2015-11 No 10MG Take 10 mg Ta ke 10 n (CRESTOR) 0-25 by mouth mg by 10 MG 11:28: daily. mouth tablet 06 daily. terazosin 2015-11 No 2MG Take 2 mg Take 2 mg (HYTRIN) 2 0-25 by mouth by johana th MG capsule 11:28: nightly. night ly. 06 rivaroxaban 2015-11 No 20MG Take 20 mg Ta ke 20 (XARELTO) 0-25 by mouth mg by 20 mg 11:28: daily with mouth tablet 06 evening daily meal. with evening meal. methocarbam 2015-11 Yes 500mg Take 500 Take 500 ol 0-25 mg by mg by (ROBAXIN) 11:28: mouth Two mouth Two 500 MG 06 (2) times (2) times tablet a day. a day. HYDROcodone 2016 Yes 1{tbl} Q6H Take 1 Take 1 -acetaminop 0-25 tablet by tabl et by hen (NORCO 11:28: mouth mouth 10-325) 06 every six every si x 10-325 mg (6) hours (6) ho urs per tablet as needed as ne eded for pain for pain (back (back pain). pain). insulin 2015-11 Yes 12U Inject 12 Inject 12 aspart 0-25 Units Units (NOVOLOG 11:28: under the under the FLEXPEN) 06 skin every skin 100 unit/mL morning every injection before morning pen breakfast. before breakfast . rosuvastati 2015-11 Yes 10mg Take 10 mg Ta ke 10 n (CRESTOR) 0-25 by mouth mg by 10 MG 11:28: daily. mouth tablet 06 daily. terazosin 2015-11 Yes 2mg Take 2 mg Take 2 mg (HYTRIN) 2 0-25 by mouth by johana th MG capsule 11:28: nightly. night ly. 06 clopidogrel 2015-11 Yes 75mg Take 75 mg Ta ke 75 (PLAVIX) 75 0-25 by mouth mg by mg tablet 11:28: daily. mouth 06 daily. rivaroxaban 2015-11 2017- No 20mg Take 20 mg Ta ke 20 (XARELTO) 0-25 11-02 by mouth mg by 20 mg 11:28: 00:00 daily with mouth tablet 06 :00 evening daily meal. with evening meal. amitriptyli 2015-11 No 25MG Take 25 mg Ta ke 25 ne (ELAVIL) 0-25 by mouth mg by 25 MG 11:28: daily. As mouth tablet 05 directed daily. As directed sertraline 2015-11 No 50MG Take 50 mg Richard e 50 (ZOLOFT) 0-25 by mouth mg by 100 MG 11:28: daily. mouth tablet 05 daily. nitroglycer 2015-[address] 0.4 Lenny ce 0.4 in 0-25 mg under mg under (NITROSTAT) 11:28: the tongue th e 0.4 MG SL 05 every five tongu e tablet (5) every minutes as five (5) needed for minutes chest as needed pain. for chest pain. nitroglycer 2015-[address] 0[address]4 Lenny ce 0.4 in 0-25 mg under mg under (NITROSTAT) 11:28: the tongue th e 0.4 MG SL 05 every five tongu e tablet (5) every minutes as five (5) needed for minutes chest as needed pain. for chest pain. sertraline 2015-11 Yes 50mg Take 50 mg Richard e 50 (ZOLOFT) 0-25 by mouth mg by 100 MG 11:28: daily. mouth tablet 05 daily. amitriptyli 2015-11 Yes 25mg Take 25 mg Ta ke 25 ne (ELAVIL) 0-25 by mouth mg by 25 MG 11:28: daily. As mouth tablet 05 directed daily. As directed lisinopril 2015-11 No 40MG Take 40 mg Richard e 40 (PRINIVIL,Z 0-25 by mouth mg by ESTRIL) 40 11:09: daily. As mout h MG tablet 03 directed daily. As directed sotalol 2015-11 No 120MG Take 120 Take 120 (BETAPACE) 0-25 mg by mg by 80 MG 11:09: mouth Two mouth Two tablet 03 (2) times (2) times a day. a day. sotalol 2015-11 No 120MG Take 120 Take 120 (BETAPACE) 0-25 mg by mg by 80 MG 11:09: mouth Two mouth Two tablet 03 (2) times (2) times a day. a day. lisinopril 2015-11 2017- No 40mg Take 40 mg Richard e 40 (PRINIVIL,Z 0-25 11-29 by mouth mg by ESTRIL) 40 11:09: 00:00 daily. As mout h MG tablet 03 :00 directed daily. As directed Terazosin 2014-11 Yes Goldy Terazosin HCl - 2 MG 0-02 Aiea D.O. HCl - 2 MG Oral 00:00: Oral Capsule 00 Capsule TAKE 1 CAPSULE AT BEDTIME NIGHTLY. Quantity: 30 Refills: 0 Russ Rocha Goldy Start : 03-Aug-2015 Active Lantus Yes Lantus SoloStar -24 SoloStar 100 UNIT/ML 00:00: 100 Subcutaneou 00 UNIT/ML s Solution Subcutaneo Pen-injecto us r Solution Pen-inject or Inject 40 units daily Refills: 0 Start : 4Active 3 ML Pen BD Pen Yes BD Pen Needle Mini 5-08 Needle U/F 31G X 5 00:00: Mini U/F MM 00 31G X 5 MM Quantity: 100 Refills: 0 Start : 09-Mar-2014 Active Nitrostat Yes Nitrostat 0.4 MG 4-17 0.4 MG Sublingual 00:00: Sublingual Tablet 00 Tablet Sublingual Sublingual Quantity: 25 Refills: 0 Start : 4Active Sertraline Yes QD Sertraline HCl - 100 HCl - 100 MG Oral MG Oral Tablet Tablet TAKE 1/2 TABLET DAILY. Refills: 0 Active Amitriptyli Yes QD Amitriptyl ne HCl - 25 ine HCl - MG Oral 25 MG Oral Tablet Tablet TAKE 1 TABLET DAILY DIRECTED. Refills: 0 Active Methocarbam Yes 2 Q0.5D Methocarba ol 500 MG mol 500 MG Oral Tablet Oral Tablet TAKE 2 TABLET TWICE DAILY Refills: 0 Active amLODIPine Yes .5 QD amLODIPine Besylate 10 Besylate MG Oral 10 MG Oral Tablet Tablet TAKE 0.5 TABLET DAILY Refills: 0 Active Vitamin D3 Yes 1 QD Vitamin D3 25 MCG 25 MCG (1000 UT) (1000 UT) Oral Tablet Oral Tablet TAKE 1 TABLET DAILY. Refills: 0 Active Eliquis 5 No Shaniqua Eliquis 5 MG Oral Agatha WALL, MG Oral Tablet GABO, MERLYN Tablet 1 tab po bid Quantity: 60 Refills: 6 Agatha WALL, GABO, FABRICIO, Shaniqua Active raNITIdine Yes raNITIdine HCl 150 MG HCl 150 MG TABS TABS TAKE 1 ONCE OR TWICE A DAY NEEDED FOR INDIGESTIO N Quantity: 30 Refills: 11 Active Jardiance No 1 QD Jardiance 10 MG Oral 10 MG Oral Tablet Tablet TAKE 1 TABLET BY MOUTH ONCE DAILY Refills: 0 Active Aspirin EC Yes 1 QD Aspirin EC Lo-Dose 81 Lo-Dose 81 MG TBEC MG TBEC TAKE 1 TABLET DAILY. Refills: 0 Active Problems Condition Condition Condition Status Onset Resolution Last Treatin g Comments Name Details Category Date Date Treatment Clinician Date PAD PAD Problem Inactiv [id number] (peripheral (peripheral e 11-11 14:54:45 artery artery 00:00: disease) disease) 00 (NATASHA-HCC) (NATASHA-HCC) Pain in Pain in Problem Inactiv [id number] both lower both lower e 0- 11:55:06 extremities extremities 00:00: 00 Pain in Pain in [id number] Active 2015-112016-08-27 both lower both lower 0- 11:55:06 extremities extremities 00:00: 00 Fluid Fluid Problem suspend Problem balance management( ed adde d regulation Confirmed)9 a utomatic (procedure) ally by system based on initiati o n of the Fluid Manageme n t Plan o f Care. Alteration Alteration Problem active Pr oblem in comfort: in comfort: added pain pain(Confir auto matic (finding) med)1 ally b y system based on initiati o n of the Alterati o n in comfort: Pain lenny n of Care. Decreased Decreased Problem active Prob doc cardiac cardiac added output output(Conf auto matic (finding) irmed)5 ally b y system based on initiati o n of the Decrease d Cardiac Output Plan of Care. Deficient Deficient Problem active Prob doc knowledge knowledge(C ad ded (finding) onfirmed)6 aut omatic ally by system based on initiati o n of the Knowledg e Deficit Plan of Care. At risk for Fall Problem active Prob doc falls risk(Confir adde d (finding) med)8 automa tic ally by system based on initiati o n of the Fall Ris k Plan of Care. Discharge Discharge Problem active Prob doc planning planning(Co add ed (procedure) nfirmed)7 au tomatic ally by system based on initiati o n of the Discharg e Planning Plan of Care Impaired Impaired Problem active Proble m mobility mobility(Co add ed (finding) nfirmed)10 aut omatic ally by system based on initiati o n of the Bowel Dysfunct i on Plan of Care. Total Self -care Problem active Probl em self-care deficit(Con ad ded deficit firmed)11 automa tic (finding) ally b y system based on initiati o n of the Self Car e Deficit Plan of Care. Alteration Alteration Problem suspend Pr oblem in in ed added nutrition nutrition(C au tomatic (finding) onfirmed)2 all y by system based on initiati o n of the Fall Ris k Plan of Care. Angiography Angiography Problem suspend of lower of lower ed extremity extremity arteries, arteries, bilateral bilateral(C (procedure) onfirmed) Bowel Bowel Problem suspend Problem dysfunction dysfunction ed added (disorder) (Confirmed) a utomatic 4 ally by system based on initiati o n of the Bowel Dysfunct i on Plan of Care. Bradycardia Bradycardia Problem suspend (disorder) (Confirmed) ed At risk of At risk for Problem active P roblem infection infection(C ad ded (finding) onfirmed)3 aut omatic ally by system based on initiati o n of the At Risk for Infectio n Plan of Care. 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 LV (left LV (left Problem Active ventricular ventricular ) mural ) mural thrombus thrombus High risk High risk Problem Active medication medication use use Coronary Coronary Problem Active artery artery stenosis stenosis Fatigue Fatigue Problem Active Intermitten Intermitten Problem Active t t claudicatio claudicatio n n Typical Typical Problem Active atrial atrial flutter flutter Dyspnea Dyspnea Problem Active 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 [place] coronary coronary artery of artery of [place] heart with heart with stable stable angina angina pectoris pectoris Peripheral Peripheral Problem Active arterial arterial disease disease 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 bypass graft of graft of [place] heart heart without without angina angina pectoris pectoris Cardiomyopa Cardiomyopa Problem Active thy, thy, dilated dilated Benign Benign Problem Active essential essential hypertensio hypertensio n n Dyslipidemi Dyslipidemi Problem Active a a Paroxysmal Paroxysmal Problem Active atrial atrial fibrillatio fibrillatio n n 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 diabetes mellitus mellitus ICD ICD Problem Active (implantabl (implantabl e e cardioverte cardioverte r-defibrill r-defibrill ator) in ator) in place place Procedures Procedure Date / Time Performed Performing Clinician Devic e Bypass Femoral Popliteal Tibial 2020-11-16 09:03:00 IPO (Right)1 Basic Metabolic Panel(BMP) 2020-11-08 00:00:00 CBC 2020-11-08 00:00:00 Magnesium 2020-11-08 00:00:00 PT-INR 2020-11-08 00:00:00 Basic Metabolic Panel - 2020-10-23 00:00:00 Hospital Only CBC - Hospital Only 2020-10-23 00:00:00 Magnesium - Hospital Only 2020-10-23 00:00:00 PT - Hospital Only 2020-10-23 00:00:00 EKG 2020-10-23 00:00:00 DP-Bilateral LE Arterial Duplex 2020-10-23 00:00:00 DP-Bilaterial CHRIS 2020-10-23 00:00:00 EKG 2020-09-04 00:00:00 Basic Metabolic Panel(BMP) 2020-08-02 00:00:00 Magnesium 2020-08-02 00:00:00 PT-INR 2020-08-02 00:00:00 CBC 2020-08-02 00:00:00 EKG 2020-08-02 00:00:00 PVL CHRIS 2017-11-12 19:24:50 Moreno Miller ARTERIOGRAM LOWER EXTREMITY 2017-09-23 12:10:13 Lydia Miller BILATERAL PVL VEIN MAPPING LOWER 2016-10-09 16:37:19 Moreno Miller eph EXTREMITY BILATERAL ARTERIOGRAM ABDOMEN 2016-09-22 13:58:51 PVL ARTERIAL DUPLEX LOWER 2016-08-27 19:41:40 Paulina Mendosa ns EXTREMITY BILATERAL pacemaker/defib 2013-05-20 00:00:00 right femoral stent Appendectomy Cholecystectomy Rt IHR (age 10 and 22) x2 Rt testicle removed Stented coronary artery, RCA, LAD, tonsillectomy CABG - Coronary artery bypass graft CABG - Coronary artery bypass graft History of Cath Stent Placement History of Appendectomy History of Cholecystectomy History of Implantable Cardioverter-Defibrillator Results Test Description Test Time Test Comments Text Results Atomic Results Result Comments Whole Blood Glucose 2020-11-21 08:16:00 Test Item Value Reference Range Comments Whole Blood Glucose (test code = Whole Blood Glucose) 248 mg/dL 74-106 POC [id number] 07:30:00 Test Item Value Reference Range Comments POC Glucose (test code = POC Glucose) Done Charted BUN,Sodium Lvl,Potassium Lvl,Chloride,CO2,Glucose Lvl,Creatinine,Calcium Lvl,BUN/CR Ratio,Anion Gap,2020-11-21 04:08:00 Test Item Value Reference Range Comments BUN (test code = BUN) 23 mg/dL 9-23 Sodium Lvl (test code = Sodium 139 mmol/L 136-145 Lvl) Potassium Lvl (test code = 3.2 mmol/L 3.4-5.1 Potassium Lvl) Chloride (test code = 109 mmol/L 98-107 Chloride) CO2 (test code = CO2) 23.0 mmol/L 20-31 Glucose Lvl (test code = 78 mg/dL 74-106 Result Comment: Glucose Lvl) GLUCOSE-RECHECKE D Creatinine (test code = 1.68 mg/dL 0.70-1.30 Creatinine) Calcium Lvl (test code = 8.0 mg/dL 8.7-10.4 Calcium Lvl) BUN/CR Ratio (test code = 14 BUN/CR Ratio) Anion Gap (test code = Anion 7 4-18 Gap) Calc Osmol (test code = Calc 280 1 Osmol) GFR Non (test 42.21 code = GFR Non ) GFR (test 51.08 code = GFR ) WBC,RBC,Hgb,Hct,MCV (MCV),MCH (HCH),MCHC (MCHC),RDW (RDW),Platelet,[id number] 17:19:00 Test Item Value Reference Range Comments WBC (test code = WBC) 9.3 1 4.8-10.8 RBC (test code = RBC) 2.96 1 4.70-6.10 Hgb (test code = Hgb) 8.7 1 14.0-18.0 Hct (test code = Hct) 26.0 % 40.0-54.0 MCV (MCV) (test code = MCV (MCV)) 87.8 fL 80-94 MCH (HCH) (test code = MCH (HCH)) 29.4 pg 27-34 MCHC (MCHC) (test code = MCHC (MCHC)) 33.5 % 31.5-36.0 RDW (RDW) (test code = RDW (RDW)) 12.8 % 11.5-14.5 Platelet (test code = Platelet) 153 1 130-400 MPV (test code = MPV) 12.0 fL 7.4-10.4 Neutro Percent,Lymph Percent,Valencia Percent,Eos Percent,Basophil Percent,Neut Absolute,Lymphs [id number] 01:32:00 Test Item Value Reference Range Comments Neutro Percent (test code = Neutro Percent) 66.8 % 34.6 -71.4 Lymph Percent (test code = Lymph Percent) 19.3 % 19.6-5 2.7 Valencia Percent (test code = Valencia Percent) 9.7 % 2.4-11.8 Eos Percent (test code = Eos Percent) 3.2 % 0-7.8 Basophil Percent (test code = Basophil Percent) 0.7 % 0-1.8 Neut Absolute (test code = Neut Absolute) 6.1 1 1.8-7. 3 Lymphs Absolute (test code = Lymphs Absolute) 1.8 1 1. 5-4.0 Valencia Absolute (test code = Valencia Absolute) 0.9 1 0.2-1. 0 Eos Absolute (EOSA) (test code = Eos Absolute (EOSA)) 0.3 1 0-0.7 Baso Absolute (BASOA) (test code = Baso Absolute 0.1 1 0.0-0.2 (BASOA)) Magnesium [id number] 04:00:00 Test Item Value Reference Range Comments Magnesium Lvl (test code = Magnesium Lvl) 2.2 mg/dL 1.60-2 .60 [id number] 04:00:00 Test Item Value Reference Range Comments MRSA-PCR (test code = NEGATIVE Result Com ment: MRSA SCREEN- MRSA MRSA-PCR) SCREEN-A positiv e test result does not necessa rily indicate the presence of viab le organisms but is presumptive f or MRSA. MRSA SCREEN-Results s hould be used to identify patient s needing enhanced precaut ions and should not be used to g uide or monitor treatment for MR SA infections. Bili Total,Alk Phos,AST,ALT,Total Protein,Albumin Lvl,Globulin,Albumin/Globulin [id number] 02:47:00 Test Item Value Reference Range Comments Bili Total (test code = Bili Total) <0.2 0.2-1.2 Alk Phos (test code = Alk Phos) 127 1 46-116 AST (test code = AST) 36 1 15-34 ALT (test code = ALT) 38 1 10-49 Total Protein (test code = Total Protein) 5.9 1 5.7-8. 2 Albumin Lvl (test code = Albumin Lvl) 3.1 1 3.4-5.0 Globulin (test code = Globulin) 2.8 1 1.5-4.5 Albumin/Globulin Ratio (test code = Albumin/Globulin 1.1 1.1-1.8 Ratio) [id number] 22:42:00 Test Item Value Reference Range Comments PTT (test code = PTT) 78.9 s 22.5-28.6 ID NOW Covid [id number] 00:24:00 Test Item Value Reference Range Comments ID NOW Covid 19 (test COVID-19 NEGATIVE Result C omment: ID NOW code = ID NOW Covid COVID1-Th is result does 19) not rule out co- infections with other patho gens. False negative results may occur if a specimen is im properly collected, trans ported or handled. False n egative results may also occur if amplification in hibitors are present in the s pecimen or if inadequate level s of viruses are present in t he specimen. Negative results should be considered in th e context of a patient's rece nt exposures, history and the presence of clinical signs a nd symptoms consistent with COVID-1. This assay is only in tended for use under the od and Drug Administration's (FDA) Emergency Use Authorization(EU A). Terms of use require that the following Fact S heets be provided with is test report: --[employer] ID NOW COVID 1 f or Providers --[facility] ID NOW COVID 1 for Sena ents These Fact Sheets can be accessed at: http:www.[facility]ernhomedu ml-ddlpevnbr-bxt -COVID-1.html SARS-CoV-2 RdRp Resp QI [id number] 00:00:00 Test Item Value Reference Range Comments SARS-CoV-2 RdRp Resp QI Negative [place] Covid Public Health Case ID: LYLA+probe (test code = COVID_104 [id number]) Type and Screen (Convertible)2020-11-14 21:50:00 Test Item Value Reference Range Comments Type and Screen TYPE AND SCREEN (CONVERTIBLE) (Convertible) (test code = C97181 Date Specimen Type and Screen Received By Lab: @[id number] (Convertible)) BLOOD COMPONENT TYPE RED CELL GROUP NUMBER OF UNITS ORDERED 2 CROSSMATCH EXPIRATION 11/17/2020 ABO/RH(D) A ABO/RH(D) POSITIVE ANTIBODY SCREEN NEGATIVE TS CONVERTED TO XM TYSC CONV. TO CXM ARM BAND NUMBER [id number] TYSC TO CXM TYSC TO CXM PT,[id number] 21:47:00 Test Item Value Reference Range Comments PT (test code = PT) 12.7 s 9.7-11.3 INR (test code = INR) 1.2 0.9-1.1 I-POC [id number] 12:22:00 Test Item Value Reference Range Comments I-POC ACT (test code = I-POC ACT) 217 s 77-157 BUN,Sodium Lvl,Potassium Lvl,Chloride,CO2,Glucose Lvl,Creatinine,Calcium Lvl,BUN/CR Ratio,Anion Gap,2020-10-31 10:13:00 Test Item Value Reference Range Comments BUN (test code = BUN) 15 mg/dL 9-23 Sodium Lvl (test code = Sodium Lvl) 136 mmol/L 136-145 Potassium Lvl (test code = Potassium Lvl) 4.3 mmol/L 3.4-5. 1 Chloride (test code = Chloride) 104 mmol/L 98-107 CO2 (test code = CO2) 26.0 mmol/L 20-31 Glucose Lvl (test code = Glucose Lvl) 383 mg/dL 74-106 Creatinine (test code = Creatinine) 1.39 mg/dL 0.70-1.30 Calcium Lvl (test code = Calcium Lvl) 9.1 mg/dL 8.7-10.4 BUN/CR Ratio (test code = BUN/CR Ratio) 11 Anion Gap (test code = Anion Gap) 6 4-18 Calc Osmol (test code = Calc Osmol) 288 1 GFR Non (test code = GFR Non 52.53 ) GFR (test code = GFR >60.00 Bruneian) WBC,Neutro Percent,Lymph Percent,[place] Percent,Eos Percent,Basophil Percent,Neut Absolute,Lymphs [id number] 10:13:00 Test Item Value Reference Range Comments WBC (test code = WBC) 9.0 1 4.8-10.8 Neutro Percent (test code = Neutro Percent) 70.1 % 34.6 -71.4 Lymph Percent (test code = Lymph Percent) 18.8 % 19.6-5 2.7 Valencia Percent (test code = Valencia Percent) 7.8 % 2.4-11.8 Eos Percent (test code = Eos Percent) 2.0 % 0-7.8 Basophil Percent (test code = Basophil Percent) 1.1 % 0-1.8 Neut Absolute (test code = Neut Absolute) 6.3 1 1.8-7. 3 Lymphs Absolute (test code = Lymphs Absolute) 1.7 1 1. 5-4.0 Valencia Absolute (test code = Valencia Absolute) 0.7 1 0.2-1. 0 Eos Absolute (EOSA) (test code = Eos Absolute 0.2 1 0- 0.7 (EOSA)) Baso Absolute (BASOA) (test code = Baso Absolute 0.1 1 0.0-0.2 (BASOA)) RBC (test code = RBC) 4.97 1 4.70-6.10 Hgb (test code = Hgb) 14.5 1 14.0-18.0 Hct (test code = Hct) 43.6 % 40.0-54.0 MCV (MCV) (test code = MCV (MCV)) 87.7 fL 80-94 MCH (HCH) (test code = MCH (HCH)) 29.2 pg 27-34 MCHC (MCHC) (test code = MCHC (MCHC)) 33.3 % 31.5-36.0 RDW (RDW) (test code = RDW (RDW)) 12.5 % 11.5-14.5 Platelet (test code = Platelet) 202 1 130-400 MPV (test code = MPV) 11.0 fL 7.4-10.4 Magnesium [id number] 10:13:00 Test Item Value Reference Range Comments Magnesium Lvl (test code = Magnesium Lvl) 2.0 mg/dL 1.60-2 .60 PT,[id number] 10:13:00 Test Item Value Reference Range Comments PT (test code = PT) 10.6 s 9.7-11.3 INR (test code = INR) 1.0 0.9-1.1 CBC - [facility] [id number] 10:13:00 Test Item Value Reference Range Comments White Blood Cell (test code = White Blood Cell) 9.0 K/uL 4.8-10.8 Neutrophil Count Percentage (test code = 70.1 % 34.6-71 .4 Neutrophil Count Percentage) Lymphocyte Count Percentage (test code = 18.8 % 19.6-52 .7 Lymphocyte Count Percentage) Monocyte Count Percentage (test code = Monocyte 7.8 % 2.4-11.8 Count Percentage) Eosinophil Count Percentage (test code = 2.0 % 0-7.8 Eosinophil Count Percentage) Basophil Count Percentage (test code = Basophil 1.1 % 0-1.8 Count Percentage) Neutrophil Count, absolute (test code = 6.3 K/uL 1.8-7.3 Neutrophil Count, absolute) Lymphocyte Count, absolute (test code = 1.7 K/uL 1.5-4.0 Lymphocyte Count, absolute) Monocyte Count, absolute (test code = Monocyte 0.7 K/uL 0 .2-1.0 Count, absolute) Eosinophil Count, absolute (test code = 0.2 K/uL 0-0.7 Eosinophil Count, absolute) Basophil Count, absolute (test code = Basophil 0.1 K/uL 0 .0-0.2 Count, absolute) Red Blood Cell (test code = Red Blood Cell) 4.97 {M/uL} 4.70 -6.10 Hemoglobin (test code = Hemoglobin) 14.5 {GM/DL} 14.0-18.0 Hematocrit (test code = Hematocrit) 43.6 % 40.0-54.0 Mean Corpuscular Volume (test code = Mean 87.7 fL 80-94 Corpuscular Volume) Mean Corpuscular Hemoglobin (test code = Mean 29.2 pg 27 -34 Corpuscular Hemoglobin) Mean Corpuscular Hemoglobin Concentration (test 33.3 % 31.5-36.0 code = Mean Corpuscular Hemoglobin Concentration) Red Cell Distribution Width (test code = Red 12.5 % 11. 5-14.5 Cell Distribution Width) Platelet (test code = Platelet) 202 K/uL 130-400 Mean Platelet Volume (test code = Mean Platelet 11.0 fL 7.4-10.4 Volume) Prothrombin [id number] 10:13:00 Test Item Value Reference Range Comments Prothrombin Time (test code = Prothrombin Time) 10.6 {sec} 9.7-11.3 INR (test code = INR) 1.0 0.9-1.1 [id number]:13[facility]00 Test Item Value Reference Range Comments Blood Urea Nitrogen (test code = Blood Urea 15 mg/dL 9-23 Nitrogen) Sodium (test code = Sodium) 136 mmol/L 136-145 Potassium (test code = Potassium) 4.3 mmol/L 3.4-5.1 Chloride (test code = Chloride) 104 mmol/L 98-107 Enzymatic CO2 (test code = Enzymatic CO2) 26.0 mmol/L 20-31 Glucose (test code = Glucose) 383 mg/dL 74-106 Creatinine, serum (test code = Creatinine, 1.39 mg/dL 0.70- 1.30 serum) Calcium (test code = Calcium) 9.1 mg/dL 8.7-10.4 Bun/Creat Ratio (test code = Bun/Creat 11 Ratio) Anion Gap (test code = Anion Gap) 6 4-18 Calc. Osmolality (test code = Calc. 288 {MOSM/KG} Osmolality) Glomerular Filtration Rate (test code = 52.53 mL/min/1.7 >60 Glomerular Filtration Rate) Glomerular Filtration Rate AA (test code = >60.00 >60 Glomerular Filtration Rate AA) Magnesium - Hospital [id number] 10:13:00 Test Item Value Reference Range Comments Magnesium (test code = Magnesium) 2.0 mg/dL 1.60-2.60 DP-Bilateral LE Arterial [id number] 17:05:00+ +: : [facility]: : [address] [place] [address] Road: : [place] [address] + + Lower Extremity Arterial Duplex Name: Theodora Awad : 1940MRN: [id number] Age: 80 yrsAccount Number:[id number] Gender: MaleOrdering Physician: Jakob Birch Study Date: 10/23/2020 10:35 AM Reason For Study: PeripheralReferring P hysician: EYAL arterial diseasePerformed By: JUSTINO SMITH Interpreting physician: Goldy Chandra Procedur e: A bilateral lowerextremity arterial duplex exam was performed. Thestudy was technically good with many images being of high quality. There is noprior report available for comparison. Interpretation SummaryRight lower extremity:Significantly abnormal wave forms consistent with inflow stenosis.Profundofemoral artery demonstrates greater than 75% stenosis by velocityratio criteriaMid superficial femoral artery is occluded. Reconstitution at the distalvessel.Two-vessel runoff, posterior tibial artery is occluded.Left lower extremity:50% stenosis of the distal external iliac artery.Femoral- popliteal bypass graft at the proximal anastomosis PSV 87.2 cm/s,thigh 80.9 cm/s, mid thigh 61 cm/s, distal thigh 58 cm/s, distal xzsetjopjti28.4 cm/s.Ante rior tibial artery is occluded. Two-vessel runoff. Rt. Segmental Pressures/PVR Lt. Segmental Pressures/PVRR Brachial 154mm/hg. L Brachial 150 mm/hg.R Ankle N/A mm/hg. L Ankle 177 mm/hg.R CHRIS = N/A. L CHRIS = 1.15 Normal.Digit pressure is N/A mmHg. Digit pressure is 100 mmHg.Resting DBI is N/A. Resting DBI is .65 Mild ischemia. CHRIS's may be falsely elevated due to calcified vessel south. Intervention - Lt. Lower Extremity The arterial bypass graft on the left is patent. Flow velocities in the left bypass graft are within normal range. The proximal anastomosis on the left is to the common femoral artery. Duplex measurements on the left in the proximal graft anastomosis are within normal limits. Duplex measurements on the left in the proximal graft segment are within normal limits. Measurements on the left in the mid segment of the graft are within normal limits. Distal graft measurements on the left are within normal limits. The distalgraft anastomosis on the left duplex findings are within normal limits. Duplex findingson the left of the outflow vessel are within normal limits. The graft diameter measurement on the left is 0.63 cm.Right Findings:The distal external iliac above the SHAFT HEADMAN is patent with markedly diminishedcontinuous monophasic flow, indicative of more proximal obstruction/occlusion.The SHAFT HEADMAN is patent with markeldy diminished continuous monophasic flow.Findings are consistent with >50% stenosis within the right profunda femoralartery. The proximal SFA is patent with markedly diminished monophasic flow.The mid SFA is occluded. There is reconstituted flow to the distal SFA viacollateral flow. The distal SFA is patent with markedly diminished continuousmonophasic flow. The right popliteal artery is patent without noticeableplaque. No appreciable plaque is seen in the right tibioperoneal trunk. ThePTA becomes occluded distally.The DPA not visualized, suspect occlusion. Right1 Vessel runoff to ankle is patent: LEONIDAS.Left Findings:Duplex findings in the Left Distal External iliac artery suggest mild (20-49%)stenosis. No plaque is seen in the left common femoral artery. The proximalleft profunda femoris artery is patent. The left popliteal artery is pa tentwithout noticeable plaque. No appreciable plaque is seen in the lefttibioperoneal trunk. 2 Vessel runoff on the left to the ankle is patent: DESPATCHING AND RECEIVING CLERK,LEONIDAS. The JULIAN is diffusely occlusive. The JULIAN is occluded proximal & distal.The JULIAN origin not visualized, suspect occlusion. Measurements are displayed in Absolute Value format. ( +/- signs will be suppressed)Measurements and Calculations Right No Left Unit LateralityDst Ext Iliac A PSV 34.0 239.6 cm/secCFA PSV 40.7 72.3 cm/secProx PFA PSV 267.1 131.2 cm/secProx SFA PSV 47.1 cm/secDist SFA PSV 28.1 cm/secProx Pop A PSV 20.2 93.8 cm/secDist Pop A PSV 16.7 113.2 cm/secProx JULIAN PSV 17.5 26.7 cm/secMid JULIAN PSV 12.4 55.8 cm/secDist JULIAN PSV 9.0 45.6 cm/secProx DESPATCHING AND RECEIVING CLERK PSV 11.8 69.9 cm/secMid DESPATCHING AND RECEIVING CLERK PSV 6.5 95.9 cm/secDist DESPATCHING AND RECEIVING CLERK PSV 53.4 cm/secProx Leonidas A PSV 16.3 76.2 cm/secMid Leonidas A PSV 7.5 91.9 cm/secDist Leonidas A PSV 10.0 115.5 cm/secDor Pedis PSV 31.1 c m/sec+ +: :: :: :: :: :: :: :: :: :: :: :: :: :+ + LT JULIAN DS T Electronically signed by:Goldy Chandra 10/23/2020 05:05 PMDP-Bilaterial CHRIS 2020-10-23 16:50:00+ +: : [facility]: : [address] [place] [address] Road: : [place] [address]+ + Ankle-Brachial Index Name: Theodora Awad Yovany : 1940MRN: [id number] Age: 80 yrsAccount Number:[id number] Gender: MaleOrdering Physician: Jakob Birch Study Date: 10/23/2020 10:14 AM Reason For Study: PeripheralReferring Physician: EYAL arterial diseasePerformed By: JUSTINO SMITH Interpreting physician: Goldy Chandra Procedure: An ankle brachial Doppler exam was performed. The technical qualityof this exam is good.Symptoms: Leg Pain. Interpretation SummaryLeft CHRIS normal.Left TBI mildly depressed Right P ressures/Waveforms Left Pressures/Uqudmidgp560 mmHg brachial artery pressure. 150 mmHg brachial artery pressure.N/A mmHg posterior tibial artery 177 mmHg posterior tibial arterypressure. pressure.N/A mmHg anterior tibial artery 150 mmHg anterior tibial arterypressure. pressure.N/A ankle/brachial index (DESPATCHING AND RECEIVING CLERK). 1.15 Normal ankle/brachial index (DESPATCHING AND RECEIVING CLERK).N/A ankle/brachial index (JULIAN). .97 Normal to mild ischemiaThe 1st digit PPG waveform is absent . ankle/brachial index (JULIAN). The 1st digit PPG waveform is mildly abnormal .Right Digit Pressures: Left Digit Pressures:Digit pressure is N/A mmHg. Digit pressure is 100 mmHg.Resting digital brachial index is N/A. Resting digital brachial index is .65 Mild ischemia. Measurements are displayed in Absolute Value format. ( +/- signs will be suppressed) +: :: :: :: :: :: :: :: :: :: :: :: :: :: :: :: :: :: :: :: :: :: :: :: :: :: :: :: :: :: :: :: :: :: :: :: :: :::: :: :: :: :: :: :: :: :::: :: :: :: :: :: :: :: :: :: :: :: :: :: :: :: :: :: :: :: :: :: :: :: :: : + Demographics Mauro hollandpler ----+: :: :: :: :: :: :: :: :: :: :: :: :: :: :: :: :: :: :: :: :: :: :: :: :: :: :: :: :: :: :: :: :: :: :: :: :: :: :: :: :: :: :: :: :: :: :: :: :: :: :: :: :: :: :: :: :: :: :: :: :: :: :: :: :: :: :: :: :: :: :: :: : + Doppler pg #2 VPR Electronically signed by:Goldy Chandra 10/23/2020 04:50 PM Whole Blood [id number] 11:54:00 Test Item Value Reference Range Comments Whole Blood Glucose (test code = Whole Blood 164 mg/dL 74- 106 Glucose) Magnesium [id number] 05:46:00 Test Item Value Reference Range Comments Magnesium Lvl (test code = Magnesium Lvl) 2.0 mg/dL 1.60-2 .60 [id number] 05:46:00 Test Item Value Reference Range Comments Phosphorus (test code = Phosphorus) 4.1 mg/dL 2.4-5.1 Glucose Lvl,BUN,Creatinine,Bili Total,Alk Phos,AST,ALT,Total Protein,Albumin Lvl,Globulin,Albumin/[id number] 05:46:00 Test Item Value Reference Range Comments Glucose Lvl (test code = Glucose Lvl) 109 mg/dL 74-106 BUN (test code = BUN) 13 mg/dL 9-23 Creatinine (test code = Creatinine) 1.15 mg/dL 0.70-1.30 Bili Total (test code = Bili Total) 0.5 mg/dL 0.2-1.2 Alk Phos (test code = Alk Phos) 106 1 46-116 AST (test code = AST) 33 1 15-34 ALT (test code = ALT) 42 1 10-49 Total Protein (test code = Total Protein) 6.0 1 5.7-8. 2 Albumin Lvl (test code = Albumin Lvl) 3.3 1 3.4-5.0 Globulin (test code = Globulin) 2.7 1 1.5-4.5 Albumin/Globulin Ratio (test code = 1.2 1.1-1.8 Albumin/Globulin Ratio) Calcium Lvl (test code = Calcium Lvl) 8.5 mg/dL 8.7-10.4 Sodium Lvl (test code = Sodium Lvl) 141 mmol/L 136-145 Potassium Lvl (test code = Potassium Lvl) 3.5 mmol/L 3.4-5. 1 Chloride (test code = Chloride) 110 mmol/L 98-107 CO2 (test code = CO2) 24.0 mmol/L 20-31 Anion Gap (test code = Anion Gap) 7 4-18 Calc Osmol (test code = Calc Osmol) 282 1 BUN/CR Ratio (test code = BUN/CR Ratio) 11 GFR Non (test code = GFR Non >60.00 ) GFR (test code = GFR >60.00 Bruneian) WBC,Neutro Percent,Lymph Percent,[place] Percent,Eos Percent,Basophil Percent,Neut Absolute,Lymphs [id number] 05:46:00 Test Item Value Reference Range Comments WBC (test code = WBC) 8.3 1 4.8-10.8 Neutro Percent (test code = Neutro Percent) 64.8 % 34.6 -71.4 Lymph Percent (test code = Lymph Percent) 22.4 % 19.6-5 2.7 Valencia Percent (test code = Valencia Percent) 8.5 % 2.4-11.8 Eos Percent (test code = Eos Percent) 2.4 % 0-7.8 Basophil Percent (test code = Basophil Percent) 1.7 % 0-1.8 Neut Absolute (test code = Neut Absolute) 5.4 1 1.8-7. 3 Lymphs Absolute (test code = Lymphs Absolute) 1.9 1 1. 5-4.0 Valencia Absolute (test code = Valencia Absolute) 0.7 1 0.2-1. 0 Eos Absolute (EOSA) (test code = Eos Absolute 0.2 1 0- 0.7 (EOSA)) Baso Absolute (BASOA) (test code = Baso Absolute 0.1 1 0.0-0.2 (BASOA)) RBC (test code = RBC) 4.84 1 4.70-6.10 Hgb (test code = Hgb) 14.3 1 14.0-18.0 Hct (test code = Hct) 41.7 % 40.0-54.0 MCV (MCV) (test code = MCV (MCV)) 86.2 fL 80-94 MCH (HCH) (test code = MCH (HCH)) 29.5 pg 27-34 MCHC (MCHC) (test code = MCHC (MCHC)) 34.3 % 31.5-36.0 RDW (RDW) (test code = RDW (RDW)) 12.0 % 11.5-14.5 Platelet (test code = Platelet) 187 1 130-400 MPV (test code = MPV) 10.7 fL 7.4-10.4 POC [id number] 21:00:00 Test Item Value Reference Range Comments POC Glucose (test code = POC Glucose) Done Charted CRP [id number]-[id number] 01:42:00 Test Item Value Reference Range Comments CRP Non-Cardiac (test code = CRP Non-Cardiac) 9.0 mg/L Sed [id number] 01:42:00 Test Item Value Reference Range Comments Sed Rate (test code = Sed Rate) 22 mm/h 0-20 Blood [id number] 09:28:00 Test Item Value Reference Range Comments Blood Culture (test code = Blood Culture) NO GROWTH 2 DAYS ID NOW Covid [id number] 00:55:00 Test Item Value Reference Range Comments ID NOW Covid 19 (test COVID-19 NEGATIVE Result C omment: ID NOW code = ID NOW Covid COVID1-Th is result does 19) not rule out co- infections with other patho gens. False negative results may occur if a specimen is im properly collected, trans ported or handled. False n egative results may also occur if amplification in hibitors are present in the s pecimen or if inadequate level s of viruses are present in t he specimen. Negative results should be considered in th e context of a patient's rece nt exposures, history and the presence of clinical signs a nd symptoms consistent with COVID-1. This assay is only in tended for use under the od and Drug Administration's (FDA) Emergency Use Authorization(EU A). Terms of use require that the following Fact S heets be provided with th is test report: --[employer] ID NOW COVID 1 f or Providers --[employer] ID NOW COVID 1 for Sena ents These Fact Sheets can be accessed at: http:www.[facility] centerShoka.medu zq-rvzlzicoz-bio -COVID-1.html SARS-CoV-2 RdRp Resp QI [id number] 00:00:00 Test Item Value Reference Range Comments SARS-CoV-2 RdRp Resp QI Negative [place] Covid Public Health Case ID: LYLA+probe (test code = COVID_104 [id number]) PT,[id number] 22:56:00 Test Item Value Reference Range Comments PT (test code = PT) 10.0 s 9.7-11.3 INR (test code = INR) 0.9 0.9-1.1 [id number] 22:56:00 Test Item Value Reference Range Comments PTT (test code = PTT) 26.0 s 22.5-28.6 Blood [id number] 22:56:00 Test Item Value Reference Range Comments Blood Culture (test code = Blood Culture) NO GROWTH 3 DAYS Whole Blood [id number] 07:32:00 Test Item Value Reference Range Comments Whole Blood Glucose (test code = Whole Blood 178 mg/dL 74- 106 Glucose) BUN,Sodium Lvl,Potassium Lvl,Chloride,CO2,Glucose Lvl,Creatinine,Calcium Lvl,BUN/CR Ratio,Anion Gap,2020-08-17 09:47:00 Test Item Value Reference Range Comments BUN (test code = BUN) 15 mg/dL 9-23 Sodium Lvl (test code = Sodium Lvl) 140 mmol/L 136-145 Potassium Lvl (test code = Potassium Lvl) 4.1 mmol/L 3.4-5. 1 Chloride (test code = Chloride) 105 mmol/L 98-107 CO2 (test code = CO2) 28.0 mmol/L 20-31 Glucose Lvl (test code = Glucose Lvl) 128 mg/dL 74-106 Creatinine (test code = Creatinine) 1.46 mg/dL 0.70-1.30 Calcium Lvl (test code = Calcium Lvl) 9.8 mg/dL 8.7-10.4 BUN/CR Ratio (test code = BUN/CR Ratio) 10 Anion Gap (test code = Anion Gap) 7 4-18 Calc Osmol (test code = Calc Osmol) 282 1 GFR Non (test code = GFR Non 49.63 ) GFR (test code = GFR >60.00 [place]) WBC,Neutro Percent,Lymph Percent,[place] Percent,Eos Percent,Basophil Percent,Neut Absolute,Lymphs [id number] 09:47:00 Test Item Value Reference Range Comments WBC (test code = WBC) 9.1 1 4.8-10.8 Neutro Percent (test code = Neutro Percent) 62.4 % 34.6 -71.4 Lymph Percent (test code = Lymph Percent) 25.1 % 19.6-5 2.7 Valencia Percent (test code = Valencia Percent) 7.7 % 2.4-11.8 Eos Percent (test code = Eos Percent) 2.8 % 0-7.8 Basophil Percent (test code = Basophil Percent) 1.8 % 0-1.8 Neut Absolute (test code = Neut Absolute) 5.7 1 1.8-7. 3 Lymphs Absolute (test code = Lymphs Absolute) 2.3 1 1. 5-4.0 Valencia Absolute (test code = Valencia Absolute) 0.7 1 0.2-1. 0 Eos Absolute (EOSA) (test code = Eos Absolute 0.3 1 0- 0.7 (EOSA)) Baso Absolute (BASOA) (test code = Baso Absolute 0.2 1 0.0-0.2 (BASOA)) RBC (test code = RBC) 5.77 1 4.70-6.10 Hgb (test code = Hgb) 17.0 1 14.0-18.0 Hct (test code = Hct) 50.4 % 40.0-54.0 MCV (MCV) (test code = MCV (MCV)) 87.3 fL 80-94 MCH (HCH) (test code = MCH (HCH)) 29.5 pg 27-34 MCHC (MCHC) (test code = MCHC (MCHC)) 33.7 % 31.5-36.0 RDW (RDW) (test code = RDW (RDW)) 12.1 % 11.5-14.5 Platelet (test code = Platelet) 190 1 130-400 MPV (test code = MPV) 11.3 fL 7.4-10.4 Magnesium [id number] 09:47:00 Test Item Value Reference Range Comments Magnesium Lvl (test code = Magnesium Lvl) 1.9 mg/dL 1.60-2 .60 PT,[id number] 09:47:00 Test Item Value Reference Range Comments PT (test code = PT) 10.9 s 9.7-11.3 INR (test code = INR) 1.0 0.9-1.1 SARS-CoV-2 RNA Resp Ql [id number] 00:00:00 Test Item Value Reference Range Comments SARS-CoV-2 RNA Resp Ql Not detected [place] Covid Public Health Case LYLA+probe (test code = ID: COVID [id number]) #[id number] 13:56:00PVL CHRIS (11/12/2017 2:24 PM EST)SpecimenNarrativePerformed At Ankle-Arm Index Report [address] [place] [address] THEOD[address] AWAD Exam Date: 11/12/2017 13:56 Ordering Physician: MORENO MILLER([id number]) Age: 77 Gender: M Exam Location: [facility] Referring Physician: [facility] [place] OUTPATIENT : 1940 Ht (in): Wt (lb): Despatching And Receiving Clerk: Breann Marie RDMS, KEO Exam Type: PVL CHRIS Procedure CPT: Indications: pad s/p bypass- ICD Codes: IMPRESSION An ankle to brachial index, toe to brachial index, ankle PVR waveforms and photoplethysmographic (PPG) toe waveforms were obtained using the BridgeXstiMedesen Revo device. 1. The ankle brachial indices at rest were as follows:Right 0.58 Left 0.90. Previously 08/27/16 Right 0.60 Left 0.68. 2. The toe brachial indices at rest were as follows:Right 0.40Left 0.84. Previously Right 0.43 Left 0.46. 3. The absolute great toe pressures at rest were as follows:Right 75 mmHgLeft 158 mmHg. 4. The right ankle PVR waveforms were of moderately abnormal amplitude with no dicrotic notch. 5. The left ankle PVR waveforms were of mildly abnormal amplitude with blunted dicrotic notch. 6. There was flow in all digits by PPG. Impression: There was a significant improvement in the left CHRIS/TBI compared to previous imaging with mild disease seen by PVR waveforms. The right CHRIS/TBI/PVR exam was essentially stable demonstrating moderate disease. Dr. Shyam Rao MD (ElectronicallySigned) Final Date: 12 November 2017 16:30EM RADProcedure NoteInterface, Rad Results In - 11/12/20174:30 PM EST Ankle-Arm Index Report [address] [address] [address]OD[address] AWAD Exam Date: 11/12/2017 13:56 Ordering Physician: MORENO MILLER ([id number]) Age: 77 Gender: M Exam Location: [facility] Referring Physician: [facility] [place] : 1940 Ht (in): Wt (lb): Despatching And Receiving Clerk: Breann Marie RDMS, RVT Exam Type: PVL CHRIS Procedure CPT: Indications: pad s/p bypass- ICD Codes: IMPRESSION An ankle to brachial index, toe to brachial index, ankle PVR waveforms and photoplethysmographic (PPG) toe waveforms were obtained using the [employer] Revo device. 1. The ankle brachial indices at rest were as follows: Right 0.58 Left 0.90. Previously 08/27/16 Right 0.60 Left 0.68. 2. The toe brachial indices at rest were asfollows: Right 0.40 Left 0.84. Previously Right 0.43 Left 0.46. 3. The absolute great toe pressures at rest were as follows: Right 75 mmHg Left 158 mmHg. 4. The right ankle PVR waveforms were of moderately abnormal amplitude with no dicrotic notch. 5. The left ankle PVR waveforms were of mildly abnormal amplitude with blunted dicrotic notch. 6. There was flow in all digits by PPG. Impression: There was a significant improvement in the left CHRIS/TBI compared to previous imaging with mild disease seen by PVR waveforms. The right CHRIS/TBI/PVR exam was essentially stable demonstrating moderate disease. Dr. Shyam Rao MD (Electronically Signed) Final Date: 12 November 2017 16:30Performing OrganizationAddressCity/State/ZipcodePhone NumberCEDAR [facility]ID[facility] [place] [id number] [facility].[place], [place] [address]JZDM [id number] 16:14:00 Test Item Value Reference Range Comments Glucose, POC (test code = Glucose, POC) 79 mg/dL 65- 99 m g/dL Basic Metabolic [id number] 15:12:00 Test Item Value Reference Range Comments Sodium (test code = Sodium) 137 mmol/L 134- 145 mmol/L Potassium (test code = Potassium) 3.9 mmol/L 3.5- 5.1 mmol/ L Chloride (test code = Chloride) 104 mmol/L 98- 107 mmol/L CO2 (test code = CO2) 23.0 mmol/L 21.0- 32.0 mmol/L BUN (test code = BUN) 28 mg/dL 7- 18 mg/dL Creatinine (test code = Creatinine) 2.07 mg/dL 0.70- 1.30 m g/dL BUN/Creatinine Ratio (test code = 14 BUN/Creatinine Ratio) GFR MDRD Non Af Amer (test code = GFR 31 mL/min/1.73m2 MDRD Non Af Amer) GFR MDRD Af Amer (test code = GFR MDRD Af 38 mL/min/1.73m2 Amer) Anion Gap (test code = Anion Gap) 10 mmol/L 3- 11 mmol/L Glucose (test code = Glucose) 68 mg/dL 65- 99 mg/dL Calcium (test code = Calcium) 8.4 mg/dL 8.5- 10.1 mg/dL POCT [id number] 11:38:00 Test Item Value Reference Range Comments Glucose, POC (test code = Glucose, POC) 151 mg/dL 65- 99 m g/dL POCT [id number] 07:47:00 Test Item Value Reference Range Comments Glucose, POC (test code = Glucose, POC) 226 mg/dL 65- 99 m g/dL Comprehensive metabolic [id number] 04:26:00 Test Item Value Reference Range Comments Sodium (test code = Sodium) 137 mmol/L 134- 145 mmol/L Potassium (test code = Potassium) 5.1 mmol/L 3.5- 5.1 mmol/ L Chloride (test code = Chloride) 103 mmol/L 98- 107 mmol/L CO2 (test code = CO2) 22.0 mmol/L 21.0- 32.0 mmol/L BUN (test code = BUN) 23 mg/dL 7- 18 mg/dL Creatinine (test code = Creatinine) 2.07 mg/dL 0.70- 1.30 m g/dL BUN/Creatinine Ratio (test code = 11 BUN/Creatinine Ratio) GFR MDRD Non Af Amer (test code = GFR 31 mL/min/1.73m2 MDRD Non Af Amer) GFR MDRD Af Amer (test code = GFR MDRD Af 38 mL/min/1.73m2 Amer) Anion Gap (test code = Anion Gap) 12 mmol/L 3- 11 mmol/L Glucose (test code = Glucose) 205 mg/dL 65- 99 mg/dL Calcium (test code = Calcium) 7.9 mg/dL 8.5- 10.1 mg/dL Albumin (test code = Albumin) 3.3 g/dL 3.4- 5.0 g/dL Total Protein (test code = Total Protein) 7.1 g/dL 6.4- 8 .2 g/dL Total Bilirubin (test code = Total 0.5 mg/dL 0.2- 1.0 mg/d L Bilirubin) AST (test code = AST) 13 U/L 15- 37 U/L ALT (test code = ALT) 32 U/L 16- 61 U/L Alkaline Phosphatase (test code = 78 U/L 45- 117 U/L Alkaline Phosphatase) Lipid [id number] 04:26:00 Test Item Value Reference Range Comments Triglycerides (test code = Triglycerides) 174 mg/dL 49- 15 0 mg/dL Cholesterol (test code = Cholesterol) 162 mg/dL 120- 200 m g/dL HDL (test code = HDL) 33 mg/dL 40- 59 mg/dL LDL Calculated (test code = LDL Calculated) 94 mg/dL 40- 100 mg/dL VLDL Cholesterol Get (test code = VLDL 34.8 mg/dL 12- 42 mg /dL Cholesterol Get) Chol/HDL Ratio (test code = Chol/HDL Ratio) 4.9 1.0- 4.5 Non-HDL Cholesterol (test code = Non-HDL 129 mg/dL 70- 130 mg/dL Cholesterol) FASTING (test code = FASTING) Unknown Hemoglobin [id number] 04:25:00 Test Item Value Reference Range Comments Hemoglobin A1C (test code = Hemoglobin A1C) 7.9 % 4.2- 6.3 % Estimated Average Glucose (test code = Estimated 180 mg/dL Average Glucose) CBC w/ [id number] 04:25:00 Test Item Value Reference Range Comments WBC (test code = WBC) 13.4 10*9/L 3.5- 10.5 10*9/L RBC (test code = RBC) 4.34 10*12/L 4.32- 5.72 10*12/L HGB (test code = HGB) 12.7 g/dL 13.5- 17.5 g/dL HCT (test code = HCT) 37.8 % 38.0- 50.0 % MCV (test code = MCV) 87.1 fL 81.0- 95.0 fL MCH (test code = MCH) 29.3 pg 26.0- 34.0 pg MCHC (test code = MCHC) 33.7 g/dL 30.0- 36.0 g/dL RDW (test code = RDW) 13.7 % 12.0- 15.0 % MPV (test code = MPV) 9.4 fL 7.0- 10.0 fL Platelet (test code = Platelet) 179 10*9/L 150- 450 10*9/L Neutrophils % (test code = Neutrophils %) 83.3 % Lymphocytes % (test code = Lymphocytes %) 10.0 % Monocytes % (test code = Monocytes %) 6.3 % Eosinophils % (test code = Eosinophils %) 0.1 % Basophils % (test code = Basophils %) 0.3 % Absolute Neutrophils (test code = Absolute 11.2 10*9/L 1.7- 7.7 10*9/L Neutrophils) Absolute Lymphocytes (test code = Absolute 1.4 10*9/L 0.7- 4.0 10*9/L Lymphocytes) Absolute Monocytes (test code = Absolute 0.8 10*9/L 0.1- 1. 0 10*9/L Monocytes) Absolute Eosinophils (test code = Absolute 0.0 10*9/L 0.0- 0.7 10*9/L Eosinophils) Absolute Basophils (test code = Absolute 0.0 10*9/L 0.0- 0. 1 10*9/L Basophils) CBC w/ [id number] 04:25:00CBC w/ Differential (09/30/2017 4:25 AM) Specimen Performing Laboratory Blood [facility] Narrative The following orders were created for panel order CBC w/ Differential. Procedure Abnormality Status --------- ------ CBC w/ Differential[[id number]] AbnormalFinal result Please view results for these tests on the individual orders.POCT [id number] 21:23:00 Test Item Value Reference Range Comments Glucose, POC (test code = Glucose, POC) 233 mg/dL 65- 99 m g/dL POCT [id number] 16:37:00 Test Item Value Reference Range Comments Glucose, POC (test code = Glucose, POC) 254 mg/dL 65- 99 m g/dL POCT [id number] 14:25:00 Test Item Value Reference Range Comments Glucose, POC (test code = Glucose, POC) 244 mg/dL 65- 99 m g/dL POCT [id number] 13:18:00 Test Item Value Reference Range Comments Glucose, POC (test code = Glucose, POC) 210 mg/dL 65- 99 m g/dL POCT [id number] 12:54:00 Test Item Value Reference Range Comments Glucose, POC (test code = Glucose, POC) 214 mg/dL 65- 99 m g/dL POCT OR Arterial Blood [id number] 11:45:00 Test Item Value Reference Range Comments pH, Arterial (test code = pH, Arterial) 7.41 7.35-7.4 5 pCO2, Arterial (test code = pCO2, Arterial) 40 mm[Hg] 35- 45 mm[Hg] pO2, Arterial (test code = pO2, Arterial) 140 mm[Hg] 83- 10 8 mm[Hg] O2 Sat, Arterial (test code = O2 Sat, 99.0 % 92.0- 100. 0 % Arterial) Base Excess, Arterial (test code = Base 0.7 mmol/L -2.4 - 2 .3 mmol-L Excess, Arterial) HCO3 (Bicarbonate), Arterial (test code = HCO3 25.4 mmol/L 2 1.0- 28.0 mmol/L (Bicarbonate), Arterial) HCT (test code = HCT) 34 % 38- 50 % Sodium (test code = Sodium) 135 mmol/L 135- 145 mmol/L Potassium, Bld (test code = Potassium, Bld) 4.1 mmol/L 3.5- 5.1 mmol/L Glucose (test code = Glucose) 242 mg/dL 65- 99 mg/dL Ionized Calcium (test code = Ionized Calcium) 1.11 mmol/L 1. 14- 1.29 mmol/L POCT OR Arterial Blood [id number] 10:13:00 Test Item Value Reference Range Comments pH, Arterial (test code = pH, Arterial) 7.38 7.35-7.4 5 pCO2, Arterial (test code = pCO2, Arterial) 43 mm[Hg] 35- 45 mm[Hg] pO2, Arterial (test code = pO2, Arterial) 113 mm[Hg] 83- 10 8 mm[Hg] O2 Sat, Arterial (test code = O2 Sat, 98.0 % 92.0- 100. 0 % Arterial) Base Excess, Arterial (test code = Base 0.1 mmol/L -2.4 - 2 .3 mmol-L Excess, Arterial) HCO3 (Bicarbonate), Arterial (test code = HCO3 25.4 mmol/L 2 1.0- 28.0 mmol/L (Bicarbonate), Arterial) HCT (test code = HCT) 37 % 38- 50 % Sodium (test code = Sodium) 135 mmol/L 135- 145 mmol/L Potassium, Bld (test code = Potassium, Bld) 4.3 mmol/L 3.5- 5.1 mmol/L Glucose (test code = Glucose) 224 mg/dL 65- 99 mg/dL Ionized Calcium (test code = Ionized Calcium) 1.12 mmol/L 1. 14- 1.29 mmol/L POCT [id number] 07:49:00 Test Item Value Reference Range Comments Glucose, POC (test code = Glucose, POC) 247 mg/dL 65- 99 m g/dL [id number] 07:23:00 Test Item Value Reference Range Comments PT (test code = PT) 12.5 sec 11.8- 14.8 sec INR (test code = INR) 0.96 0.89-1.16 [id number] 07:23:00 Test Item Value Reference Range Comments ABORh (test code = ABORh) A POS Cath/Vascular [id number] 12:10:13Cath/Vascular Procedure (09/23/2017 12:10 PM) Specimen Performing Laboratory [facility] Impressions Severe run off disease Plan Left Fem BK pop in the near future. Narrative DATE:09/23/2017 PRE-PROCEDURAL DIAGNOSIS: Bilateral lower extremity claudication POST-PROCEDURE DIAGNOSIS: Same ATTENDING PHYSICIAN: Moreno Miller MD PROCEDURE: 1. US guided access to Right SHAFT HEADMAN 2. Abdominal Aortogram 3.Bilateral Lower Extremity Arteriogram 4. Catheter selection Aorta ESTIMATED BLOOD LOSS: 5ml COMPLICATIONS: None. ANESTHESIA: Intravenous sedation with local anesthetic infiltration SPECIMENS: None INDICATIONS:PAD presentation severe claudication < 200m. Details of the procedure, including the risks, benefits and alternatives were described to the patient.Informed consent for the procedure has been obt ained.A consent form has been signed and witnessed, and placed into the patients chart. PROCEDURE: The patient was postitioned supine on the procedure table.The left femoral region was prepped and draped according to standard sterile technique. "Time-out" verification was performed, verifying patient identity, proposed procedure, patient allergies, and the presence of a valid, signed consent-form for the procedure.All information in the "time-out" process was cross-verified and validatedwith all members of the procedural care, with all members of the procedural care team present. A vbjq-wqya-dombyoquqz was bought onto the field and covered in a sterile probe-cover. The ultrasound device was then used to evaluate the vascular anatomy in the left femoral region.The location of the left common femoral artery was confirmed.The skin and subcutaneous tissues overlying the left common femoral artery were infiltrated with 1% lidocaine local anesthetic.The hand-held ultrasound was then used to guide retrograde passage of a micropunture needle through the skin and subcutaneous tissues into the mid-portion of the left common femoral artery.The ultrasound was utilized to guide needle-entry into the central portion of the lumen of the vessel, and to avoid inadvertent injury to adjacent structures.A 0.018" wire was then used to transition to a 5-Fr micro- puncture set.A 0.035" Abraham wire was then advanced in a retrograde fashion through the micropuncture sheath into the iliac arterial system.The Abraham wire advanced easily into the abdominal aorta.The 5-Fr micropuncture sheath was then exchanged for a 5-Fr (10cm) vascular sheath.A 5-Fr Omni-flush catheter was advanced in a retrograde fashion into the abdominal aorta. The catheter was positioned with its tip at the level of L1. Contrast was injected through the catheter (with its tip at the level of L1) and digital-subtraction angiographic images of the abdominal aorta were obtained [Findings; See below] The tip of the Omni-flush catheter was then advanced over the aortic bifurcation using a 0.035" Abraham wire.The Omni-flush catheter was advanced over the Abraham wire into the right common femoral artery, and digital-subtraction angiographic images of the remainder of the right lower extremity was obtained [Findings: See below] FINDINGS: ABDOMINAL AORTOGRAM: The Abdominal Aorta:is patent from the level of L1 to the aortic bifurcation.There is no appreciable stenosis throughout the visualized portions of the abdominal aorta. The Bilateral Renal Arteries:are visible, arising from the abdominal aorta at the level of L1 - L2.There is no appreciable renal artery stenosis in the bilateral renal arteries. FINDINGS: BILATERAL LOWER EXTREMITY ARTERIOGRAM: The Left Common Iliac Artery: is patent, without evidence of stenosis or occlusion. The Left External Iliac Artery:is patent,without evidence of stenosis or occlusion. The Left Internal Iliac Artery: is patent, without evidence of stenosis or occlusion. The Left Common Femoral Artery: is patent, without evidence of stenosis or occlusion. The Right Common Iliac Artery: is patent, without evidence of stenosis or occlusion. The Right External Iliac Artery:is patent, without evidence of stenosis or occlusion. The Right Internal Iliac Artery: is patent, without evidence of stenosis or occlusion. The Right Common Femoral Artery: is patent, without evidence of stenosis or occlusion. The Right Superficial Femoral Artery: diffusely diseased short segment high grade distal SFA occlusions and stenosis The Right Profunda Femoris Artery:is patent, without evidence of stenosis or occlusion. The Right Popliteal Artery: ispatent, without evidence of stenosis or occlusion. The Right Anterior Tibial Artery:is patent, without evidence of stenosis or occlusion.. The Right Tibioperoneal Trunk Artery: is patent, without evidence of stenosis or occlusion. The Right Posterior Tibial Artery:isoccluded The Right Peroneal Arteryis patent, without evidence of stenosis or occlusion.: The Left Superficial Femoral Artery:occluded from origin to mid popliteal artery The Left Profunda Femoris Artery:is patent, without evidence of stenosis or occlusion. The Left Popliteal Artery: AK pop occluded distal AK and BK pop patent The Left Anterior Tibial Artery:.is patent, without evidence of stenosis or occlusion. The Left Tibioperoneal Trunk Artery: is patent, without evidence of stenosis or occlusion. The Left Posterior Tibial Artery:is patent, without evidence of stenosis or occlusion. The Left Peroneal Artery:is patent, without evidence of stenosis or occlusion. Anesthesia:Prior to the administration of sedation, the patientwas evaluated with pre procedure documentation completed - refer to Immediate Pre Procedure Airway & Anesthesia/Pre-Sedation Reassessment Form. Prior to the administration of sedation, the patient was evaluated with pre procedure documentation completed - refer to Immediate Pre Procedure Airway & Anesthesia/Pre-Sedation Reassessment Form. Moderate Sedation with Fentanyl 50 mcg and Versed 2 mg IVwas used for this procedure.I personally spent 25minutes continuously monitoringthe patient during the administration of the sedation for this procedure. Patient assessed post sedation/anesthesia and tolerated well.Vital signs stable and no complications noted.was used forthis procedure. TEACHING PHYSICIAN ATTESTATION: I was scrubbed, present, and supervised the entire procedure as documented above.POCT [id number] 09:16:00 Test Item Value Reference Range Comments Glucose, POC (test code = Glucose, POC) 116 mg/dL 65- 99 m g/dL [id number] 09:09:00 Test Item Value Reference Range Comments Creatinine (test code = Creatinine) 1.47 mg/dL 0.70- 1.30 m g/dL GFR MDRD Af Amer (test code = GFR MDRD Af 57 mL/min/1.73m2 Amer) GFR MDRD Non Af Amer (test code = GFR MDRD 47 mL/min/1.73m2 Non Af Amer) [id number] 09:09:00 Test Item Value Reference Range Comments PT (test code = PT) 13.2 sec 11.8- 14.8 sec INR (test code = INR) 1.03 0.89-1.16 #[id number] 10:57:00PVL Vein Mapping Lower Extremity Bilateral (10/09/2016 11:37 AM EST)SpecimenNarrativePerformed At Lower Extremity Vein Mapping Report [address] [place] [address] THEODORA AWAD Exam Date: 10/09/2016 10:57 Ordering Physician: MORENO MILLER([id number]) Age: 76 Gender: M Exam Location: [facility] Referring Physician: MORENO MILLER : 1940 Ht (in): Wt(lb): Despatching And Receiving Clerk: Real Phan RDMS, RVT Procedure CPT: 37314 Indications: PVD ICD Codes: I73.9 History: Extensive peripheral arterial disease and coronary artery disease.Need bypass conduit for Left lower extremity. RIGHT LEFT Diameter Greater Saphenous Vein Diameter (mm) (mm) 4.6 SFJ SFJ 3.6 3.8 PT PT 4.0 3.9 MT MT 0.8 3.6 DT DT 1.6 4.1 Knee Knee 3.6 PC PC [facility] DC DC Ankle Ankle PAGEB REAK_ Small Saphenous Vein Diameter Diameter (mm) (mm) Knee Knee Calf Calf Ankle Ankle Impressions This was a venous duplex ultrasound of the bi lateral lower extremities. 1. There is no gross evidence of DVT in the bilateral lower extremities. 2. Significant arterial plaque shadowing made deep vein imagaing challening. 3. Bilateral greater saphenous vein measurements are documented above. Dr. Shyam Rao MD (Electronically Signed) Final Date:09 October 2016 12:15EM RADProcedure NoteInterface, Rad Results In - 10/09/2016 12:16 PM EST LowerExtremity Vein Mapping Report [address] [place] [address] THEODORA AWAD Exam Date: 10/09/2016 10:57 Ordering Physician: MORENO MILLER ([id number]) Age: 76 Gender: M Exam Location: [facility] Referring Physician: MORENO MILLER : 1940 Ht (in): Wt (lb):Despatching And Receiving Clerk: Real Phan RDMS, RVT Procedure CPT: 84556 Indications: PVD ICD Codes: I73.9 History: Extensive peripheral arterial disease and coronary artery disease. Need bypass conduit for Left lower extremity. RIGHT LEFT Diameter Greater Saphenous Vein Diameter (mm) (mm) 4.6 SFJ SFJ 3.6 3.8 PT PT 4.0 3.9 MT MT 0.8 3.6 DT DT 1.6 4.1 Knee Knee 3.6 PC PC MC MC DC DC Ankle Ankle PAGEB REAK_ Small Saphenous Vein Diameter Diameter (mm) (mm) Knee Knee Calf Calf Ankle Ankle Impressions This was a venous duplex ultrasound of the bilateral lower extremities. 1. There is no gross evidenceof DVT in the bilateral lower extremities. 2. Significant arterial plaque shadowing made deep vein imagaing challening. 3. Bilateral greater saphenous vein measurements are documented above. Dr. Shyam Rao MD (Electronically Signed) Final Date: 09 October 2016 12:15Performing OrganizationAddressCity/State/ZipcodePhone NumberC[facility] [place] [id number] [facility].[place], [place] [address]Vyhh/Vascular [id number] 13:58:51Cath/Vascular Procedure (09/22/2016 1:58 PM) Narrative Cardiology procedure Indication: The patient presents with left sided Joshua classification 3-severe claudication. Claudication occurs when walking <200m in the calf. Attending: Aleksandr MATA dye: 90cc Sedation:Patient assessed post sedation/anesthesia and tolerated well. Vital signs stable and no complications noted. 1V 50 FentAnticoagulation: heparin ACT>200 Estimated Blood Loss:Minimal Specimens:None Complications: None Procedure: 1. Abdominal aortography. 2. Bilateral lower extremity runoff Procedure After obtai ida informed consent, patient brought to the cardiac r and d lab technician. Using approximately 10 ml 1% lidocaine the right groin was anesthetized and a 5 Uzbek sheath placed in right femoral artery. Then placedin Omni Flush catheter to the level of the distal aorta performed abdominal aortography. Then pulledthe catheter down to the level of the iliac bifurcation and performed a bilateral lower extremity runoff. Findings Aortic pressure: 173/100 Abdominal aortography: Normal bilateral renal arteries. 30% distal aortic disease. Bilateral lower extremity runoff: Widely patent left common iliac artery stent.Right common iliac artery approx 30% stenosed.Normal bilateral external and internal iliac arteries.Normal bilateral SHAFT HEADMAN and profunda arteries. Left Lower extremity: Left SFA instentocclusion extends to the proximal popliteal artery.There was a sheath tip left in and looks to be behind the proximal stent struts.Otherwise, Popliteal in the P2 and P3 segments widely patent. 3 vessel runoff to the foot. Right lower extremity:Right SFA 90% distal SFA. Popliteal widely patent. Peroneal and AT extend to the foot.PT occludes proximally. Assessment/Plan: 1. Reviewed films with Dr. Miller. The best option considering tip sheath may be lodged behind stent and hypolucency in the SHAFT HEADMAN (may be sheath) - surgical option better for fem pop bypass and direct visualizationof the area. Plan on endovascular intervention of the right SFA in the future. 2. NSx4 hours 3.FU in 2-4 weeks Aleksandr Peterson MD, MHS, FACC, [facility] [place] Director of Cardiovascular and Peripheral Vascular Research at [facility] Clinical broom builder at the [facility] September 22, 2016 12:46 PMBasi Metabolic [id number] 10:44:00 Test Item Value Reference Range Comments Sodium (test code = Sodium) 138 mmol/L 134-145 mmol/L Potassium (test code = Potassium) 4.3 mmol/L 3.5-5.1 mmol/L Chloride (test code = Chloride) 102 mmol/L 98-107 mmol/L CO2 (test code = CO2) 27.0 mmol/L 21.0-32.0 mmol/L BUN (test code = BUN) 14 mg/dL 7-18 mg/dL Creatinine (test code = Creatinine) 1.34 mg/dL 0.70-1.30 mg /dL BUN/Creatinine Ratio (test code = 10 BUN/Creatinine Ratio) GFR MDRD Non Af Amer (test code = GFR MDRD 52 mL/min/1.73m2 Non Af Amer) GFR MDRD Af Amer (test code = GFR MDRD Af >60 Amer) Anion Gap (test code = Anion Gap) 9 mmol/L 3-11 mmol/L Glucose (test code = Glucose) 202 mg/dL 65-99 mg/dL Calcium (test code = Calcium) 8.1 mg/dL 8.5-10.1 mg/dL [id number] 10:44:00 Test Item Value Reference Range Comments WBC (test code = WBC) 8.6 10*9/L 3.5-10.5 10*9/L RBC (test code = RBC) 4.83 10*12/L 4.32-5.72 10*12/L HGB (test code = HGB) 14.5 g/dL 13.5-17.5 g/dL HCT (test code = HCT) 41.2 % 38.0-50.0 % MCV (test code = MCV) 85.3 fL 81.0-95.0 fL MCH (test code = MCH) 30.0 pg 26.0-34.0 pg MCHC (test code = MCHC) 35.1 g/dL 30.0-36.0 g/dL RDW (test code = RDW) 13.2 % 12.0-15.0 % MPV (test code = MPV) 9.5 fL 7.0-10.0 fL Platelet (test code = Platelet) 165 10*9/L 150-450 10*9/L [id number] 10:44:00 Test Item Value Reference Range Comments APTT (test code = APTT) 27.4 sec 24.0-36.0 sec [id number] 10:44:00 Test Item Value Reference Range Comments PT (test code = PT) 14.0 sec 11.8-14.8 sec INR (test code = INR) 1.05 Undefined #[id number] 14:52:00PVL Arterial Duplex Lower Extremity Bilateral (08/27/2016 3:41 PM EDT)SpecimenNarrativePerformed At Lower Extremity Arterial Duplex Report [address] [facility], [address] [place], [place] [address] THEODORA AWAD Exam Date: 08/27/2016 14:52 Ordering Physician: PAULINA MENDOSA Age: 76 Gender: M Exam Location: [facility] Referring Physician: PAULINA MENDOSA JULIO CESARWilliams : 1940 Ht (in): Wt (lb): Despatching And Receiving Clerk: Guilherme Conway, RTR, JONAH, RVT MRN: Procedure CPT: [id number] Indications: PAD, claudication ICD Codes: I73.9 Previous Vascular Surgery: Left SFA stent(s) Systolic BPs (mmHg) RIGHT LEFT Brachial: 202 202 JULIAN: DESPATCHING AND RECEIVING CLERK:122 137 Leonidas: CHRIS: 0.60 0.68 RIGHT LEFT Velocity Velocity (cm/s) (cm/s) Waveforms Waveforms 94 BiphasicCFA 64 Biphasic 58 BiphasicPFA 455 Biphasic 169 Biphasic Prox SFA Absent 470 BiphasicMid SFA 117 Biphasic Dist SFA Absent 21 Biphasic Prox POP 34 Biphasic 26 Biphasic Dist POP 34 Biphasic Prox JULIAN Mid JULIAN 32 Biphasic Dist JULIAN 36 Biphasic Pedal JULIAN 24 Biphasic Prox DESPATCHING AND RECEIVING CLERK 22 BiphasicMid DESPATCHING AND RECEIVING CLERK Absent Dist DESPATCHING AND RECEIVING CLERK 26 Biphasic 24 Biphasic LEONIDAS 20 Biphasic IMPRESSIONS Findings: 1. The ankle brachial indices were 0.60 Right, and 0.68 Left. 2. The great toe to brachial indices were 0.43 Right, and 0.46 Left (TBI<0.70 consistent with PAD). Absolute great toe pressures RT 86 mmHg, LT 93 mmHg. 3. Duplex ultrasound was performed on the bilateral common femoral, superficial femoral, popliteal, peroneal, posterior and anterior tibial arteries. 4. There was a significant amount of homogeneous smooth, and calcified plaque visualized bilaterally. 5. Abnormal mono-to biphasic Doppler flow patterns detected throughout both lower extremities. 6. The right superficial femoral artery occludes in the mid segment, then reconstitutes distally. 7. The left superficial femoral artery stent(s) are totally occluded. Flow reconstitutes in the left popliteal artery. 8. There appears to be a small fracture inthe left SFA stent, proximally. 9. The right posterior tibial artery is totally occluded distally. There is three vessel run-off to the left lower leg, although flow is minimal in the anterior tibial artery. 10. There is no evidence of significant stenosis in the bilateral external iliac arteries. 11. Hypertension. Conclusion: 1. Abnormal CHRIS's/TBI's bilaterally. 2. The right SFA occludes in the mid segment, reconstitutes distally. 3. The left SFA stents occlude proximally, flow reconstitutes in thepopliteal artery. 4. Suspect left SFA stent fracture proximally. 5. Tibial disease bilaterally. 6. Hypertension. Aleksandr Peterson MD (Electronically Signed) Final Date: 27 August 2016 16:16 [facility] RADPerforming OrganizationAddressCity/State/ZipcodePhone NumberC[facility]AR [facility]GE [facility] [place] [id number] [place] [address] Assessments Condition Name Status Diagnosis Date Treating Clinici an Pain, unspecified Active 0 Peripheral vascular disease, unspecified Active 0 Peripheral vascular disease, unspecified Active 0 Peripheral vascular disease, unspecified Active 0 Infection following a procedure, other Active 0 surgical site Dilated cardiomyopathy Active 0 Paroxysmal atrial fibrillation Active 0 Fatigue Active 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 Paroxysmal atrial fibrillation Active 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 Benign essential hypertension Active Intermittent claudication Active Peripheral arterial disease Active Benign essential hypertension Active Dyspnea Active History of atrial fibrillation Active 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 Atherosclerosis of [place] coronary artery of Active greenville heart with stable angina pectoris Benign essential hypertension Active History of atrial fibrillation Active 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 Benign essential hypertension Active 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 Dyslipidemia Active Peripheral arterial disease Active Paroxysmal atrial fibrillation Active 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 Benign essential hypertension Active Paroxysmal atrial fibrillation Active Benign essential hypertension Active Type 2 diabetes mellitus Active 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 Dyslipidemia Active Paroxysmal atrial fibrillation Active 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 Benign essential hypertension Active Dyslipidemia Active Peripheral arterial disease Active Paroxysmal atrial fibrillation Active Dyspnea Active Fatigue Active Benign essential hypertension Active 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 Typical atrial flutter Active Intermittent claudication Active Paroxysmal atrial fibrillation Active 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 Encounters Start End Encounter Admission Attending Care Care Encounter ID Date/Time Date/Time Type Type Clinicians Facility Department 2017-09-16 Inpatient [facility] [id number] 00:00:00 [id number] 2020-11-14 2020-11-21 I 1 Sebastián Ann [facility] [id number] 21:17:46 12:26:00 Sebastián Ann 2020-11-08 2020-11-08 Appointment [facility] [id number] 10:45:00 10:45:00 ; Sample, jA Birch 2020-11-07 2020-11-07 O E Sample, Eyal [facility] [id number] 09:21:29 15:25:00 Sample, Eyal 2020-10-31 2020-10-31 O E Sample, Eyal [facility] [id number] 09:52:58 23:59:59 Sample, Eyal 2020-10-23 2020-10-23 Appointment [facility] [id number] 10:30:00 10:30:00 [facility] 2020-10-23 2020-10-23 Appointment [facility] [id number] 09:30:00 09:30:00 ; Jakob Birch PA-C 2020-10-04 2020-10-04 Appointment [facility] [id number] 11:30:00 11:30:00 ; Jakob Birch PA-C 2020-09-12 2020-09-12 Appointment Agatha [facility] [id number] 09:30:00 09:30:00 ; Shaniqua Snider MD|FACC|R S 2020-09-01 2020-09-04 I 1 Codi Vasquez [facility] [id number] 22:30:00 15:00:00 Codi Vasquez 2020-08-31 2020-08-31 Appointment [facility] [id number] 13:00:00 13:00:00 ; [facility] 2020-08-24 2020-08-24 O E Shaniqua Snider [facility] [id number] 07:04:34 11:15:00 Shaniqua Snider 2020-08-17 2020-08-17 O E Shaniqua Snider [facility] [id number] 09:33:07 23:59:59 Shaniqua Snider 2020-08-02 2020-08-02 Appointment [facility] [id number] 13:00:00 13:00:00 ; Tamara Hoskins AGACNP- 2020-08-01 2020-08-01 Appointment [facility] [id number] 09:00:00 09:00:00 ; [facility] Juan Manuel Leigh [facility], 2020-03-12 2020-03-12 Appointment [facility] [id number] 08:15:00 08:15:00 ; Goldy Solano D.O. 2019-12-14 2019-12-[address] [id number] 08:30:00 08:30:00 ; [facility] Max melvin [facility] 2019-09-14 2019-09-[address] [facility] [id number] 15:00:00 15:00:00 ; Jakob Birch PA-C 2019-06-15 2019-06-15 Appointment [facility] [id number] 09:00:00 09:00:00 ; [facility] 2019-05-16 2019-05-16 Appointment [facility] [id number] 14:30:00 14:30:00 ; Jakob Birch PA-C 2019-04-12 2019-04-12 Appointment [facility] [id number] 15:45:00 15:45:00 ; Jakob Birch PA-C 2018-12-15 2018-12-15 Appointment [facility] [id number] 14:00:00 14:00:00 ; [facility] 2018-09-08 2018-09-08 [facility] [id number] 09:30:00 09:30:00 ; Goldy Solano D.O. 2018-08-11 2018-08-11 Appointment RUPERT Snider [facility] [id number] 16:15:00 16:15:00 ; Shaniqua Snider MD|FAC|R S 2018-01-01 2018-01-01 Outpatient [facility], [facility] [id number] 07:30:00 07:30:00 MORENO [id number] 2017-12-18 2017-12-18 Outpatient [facility], [facility] [id number] 13:30:00 13:30:00 MORENO [id number] 2017-12-02 2017-12-02 Outpatient [facility]ELA, [facility] [id number] 13:00:00 13:00:00 MORENO [id number] 2017-11-18 2017-11-18 Outpatient [facility]GELA, [facility] [id number] 13:00:00 13:00:00 MORENO [id number] 2017-11-18 2017-11-18 Outpatient [facility]GELA, [facility] [id number] 10:30:00 10:30:00 MORENO [id number] 2017-11-12 2017-11-12 Outpatient EL [facility] [id number] 15:32:34 23:59:00 [id number] 2017-11-12 2017-11-12 [facility] [id number] 13:51:35 23:59:00 2017-11-12 2017-11-12 Outpatient EL [facility] [id number] 13:51:15 15:54:18 [id number] 2017-09-29 2017-09-30 A EL ANGELA, [facility] [id number] 05:48:34 18:46:50 MORENO [id number] 2017-09-29 2017-09-30 [facility] [id number] 05:48:34 18:46:50 2017-09-29 2017-09-29 A EL ANGELA, [facility] [id number] 09:55:00 09:55:00 MORENO [id number] 2017-09-29 2017-09-29 A ANGELA, [facility] [id number] 00:00:00 00:00:00 MORENO [id number] 2017-09-23 2017-09-23 Outpatient EL ANGELA, [facility] [id number] 08:22:15 14:30:00 MORENO [id number] 2017-09-23 2017-09-23 [facility] [id number] 08:22:15 14:30:00 2017-09-23 2017-09-23 Outpatient ANGELA, [facility] [id number] 11:45:00 11:45:00 MORENO [id number] 2017-09-23 2017-09-23 Outpatient ANGELA, [facility] [id number] 11:40:00 11:40:00 MORENO [id number] 2017-09-23 2017-09-23 Outpatient EL ANGELA, [facility] [id number] 11:30:00 11:30:00 MORENO [id number] 2017-09-23 2017-09-23 Outpatient EL ANGELA, [facility] [id number] 11:25:00 11:25:00 MORENO [id number] 2017-09-23 2017-09-23 Outpatient ANGELA, [facility] [id number] 11:20:00 11:20:00 MORENO [id number] 2017-09-23 2017-09-23 Outpatient [facility]GELA, [facility] [id number] 10:00:00 10:00:00 MORENO [id number] 2017-09-16 2017-09-16 Outpatient EL [facility] [id number] 10:15:59 23:59:00 [id number] 2017-09-16 2017-09-16 Outpatient EL [facility] [id number] 00:00:00 00:00:00 [id number] 2017-09-03 2017-09-03 Outpatient EL [facility] [id number] 12:50:14 14:10:55 [id number] 2016-10-09 2016-10-09 [facility] [id number] 10:53:06 23:59:00 2016-09-22 2016-09-22 Outpatient EL VARUN, [facility] [id number] 09:39:03 20:35:00 ALEKSANDR [id number] 2016-09-22 2016-09-22 [facility] [id number] 09:39:03 20:35:00 2016-09-22 2016-09-22 Outpatient EL [facility], [facility] [id number] 12:30:00 12:30:00 ALEKSANDR [id number] 2016-09-22 2016-09-22 Outpatient [facility] [id number] 00:00:00 00:00:00 ALEKSANDR [id number] 2016-08-27 2016-08-27 Outpatient [facility] [id number] 14:36:00 23:59:00 Family History Family Member Diagnosis Comments Start Date Stop Date Mother Family history of Bronchiolitis Immunizations Ordered Filled Immunization Date Status Comments Refus al Reason Immunization Name Name Influenza Virus 2017-08-02 Completed Vaccine, 00:00:00 unspecified formulation Influenza 2014-08-21 Completed 00:00:00 influenza virus 2009-08-01 Completed vaccine, 00:00:00 inactivated Pneumo Unknown Completed Unknown Payers Payer Name Policy Type Policy Number Effective Date Expiration D ate MEDICARE PART A AND [id number] 2002 00:00:00 PART B [employer] [id number] 1990 00:00:0 0 Plan of Treatment Planned Activity Planned Date Details Comments Future Scheduled Test [code = ] Future Scheduled Test [code = ] Future Scheduled Test [code = ] Future Scheduled Test [code = ] Future Scheduled Test [code = ] Future Scheduled Test [code = ] Future Scheduled Test [code = ] Future Scheduled Test [code = ] Future Scheduled Test [code = ] Future Scheduled Test [code = ] Future Scheduled Test [code = ] Future Scheduled Test [code = ] Future Scheduled Test [code = ] Future Scheduled Test [code = ] Future Scheduled Test [code = ] Future Scheduled Test [code = ] Future Scheduled Test [code = ] Future Scheduled Test [code = ] Future Scheduled Test [code = ] Future Scheduled Test [code = ] Future Scheduled Test [code = ] Future Scheduled Test [code = ] Future Scheduled Test [code = ] Future Scheduled Test [code = ] Future Scheduled Test [code = ] Future Scheduled Test [code = ] Future Scheduled Test [code = ] Future Scheduled Test [code = ] Future Scheduled Test [code = ] Future Scheduled Test [code = ] Social History Social Habit Start Date Stop Date Comments Alcohol intake Tobacco Comment Tobacco smoking status NDIS 2016-10-09 00:00:00 2016-10-09 00:00 :00 Cigarettes smoked current (pack per 2016-10-09 00:00:00 00:00:00 day) - Reported Cigarette pack-years 2016-10-09 00:00:00 2016-10-09 00:00:00 History of tobacco use 2016-09-21 00:00:00 ASSERTION 2016-08-27 00:00:00 2016-08-27 00:00:00 Smoking Status Start Date Stop Date Smokes tobacco daily (finding) Heavy tobacco smoker (finding) 2020-11-14 23:04:07 2020-11-02 3 23:04:07 Social History Observation Description Sex Male Vital Signs Vital Name Observation Time Observation Value Comments Peripheral Pulse Rate 2020-11-21 12:05:00 61 /min Respiratory Rate 2020-11-21 12:05:00 18 /min Systolic Blood Pressure 2020-11-21 12:05:00 132 mm[Hg] Diastolic Blood Pressure 2020-11-21 12:05:00 47 mm[Hg] Temperature Oral 2020-11-21 12:05:00 36.6 Arely Temperature Oral 2020-11-21 11:55:00 36.6 Arely Peripheral Pulse Rate 2020-11-21 11:55:00 61 /min Systolic Blood Pressure 2020-11-21 11:55:00 132 mm[Hg] Diastolic Blood Pressure 2020-11-21 11:55:00 47 mm[Hg] Respiratory Rate 2020-11-21 11:00:00 18 /min Temperature Oral 2020-11-21 07:27:00 37.0 Arely Peripheral Pulse Rate 2020-11-21 07:27:00 69 /min Systolic Blood Pressure 2020-11-21 07:27:00 144 mm[Hg] Diastolic Blood Pressure 2020-11-21 07:27:00 52 mm[Hg] Respiratory Rate 2020-11-20 07:52:00 16 /min Heart Rate Monitored 2020-11-17 15:00:00 60 /min Heart Rate Monitored 2020-11-17 11:00:00 60 /min Heart Rate Monitored 2020-11-17 10:00:00 60 /min Systolic Blood Pressure 2020-11-17 05:00:00 124 mm[Hg] Invasive Diastolic Blood Pressure 2020-11-17 05:00:00 40 mm[Hg] Invasive Systolic Blood Pressure 2020-11-17 04:00:00 121 mm[Hg] Invasive Diastolic Blood Pressure 2020-11-17 04:00:00 35 mm[Hg] Invasive Systolic Blood Pressure 2020-11-17 03:00:00 132 mm[Hg] Invasive Diastolic Blood Pressure 2020-11-17 03:00:00 39 mm[Hg] Invasive Temperature - Temporal 2020-11-16 15:05:00 36.2 Arely Artery Temperature Tympanic 2020-11-16 07:00:00 36.2 Arely Apical Heart Rate 2020-11-16 07:00:00 60 /min Systolic blood pressure 2020-11-08 10:44:00 168 mm[Hg] Diastolic blood pressure 2020-11-08 10:44:00 70 mm[Hg] Body height 2020-11-08 10:44:00 66 [in_us] Weight 2020-11-08 10:44:00 172 [lb_av] Body mass index (BMI) 2020-11-08 10:44:00 27.76 kg/m2 [Ratio] Heart Rate 2020-11-08 10:44:00 68 /min Heart Rate Monitored 2020-11-07 15:00:00 60 /min Respiratory Rate 2020-11-07 15:00:00 15 /min Systolic Blood Pressure 2020-11-07 15:00:00 170 mm[Hg] Diastolic Blood Pressure 2020-11-07 15:00:00 81 mm[Hg] Heart Rate Monitored 2020-11-07 14:30:00 60 /min Respiratory Rate 2020-11-07 14:30:00 14 /min Systolic Blood Pressure 2020-11-07 14:30:00 177 mm[Hg] Diastolic Blood Pressure 2020-11-07 14:30:00 76 mm[Hg] Heart Rate Monitored 2020-11-07 14:00:00 60 /min Respiratory Rate 2020-11-07 14:00:00 15 /min Systolic Blood Pressure 2020-11-07 14:00:00 172 mm[Hg] Diastolic Blood Pressure 2020-11-07 14:00:00 65 mm[Hg] Temperature Non Contact 2020-11-07 09:48:00 36.4 Arely Peripheral Pulse Rate 2020-11-07 09:48:00 59 /min Systolic blood pressure 2020-10-23 09:24:00 154 mm[Hg] Diastolic blood pressure 2020-10-23 09:24:00 68 mm[Hg] Body height 2020-10-23 09:24:00 66 [in_us] Weight 2020-10-23 09:24:00 174 [lb_av] Body mass index (BMI) 2020-10-23 09:24:00 28.08 kg/m2 [Ratio] Heart Rate 2020-10-23 09:24:00 60 /min Systolic blood pressure 2020-09-12 09:28:00 132 mm[Hg] Loca tion: LUE; Position: Sittin g Diastolic blood pressure 2020-09-12 09:28:00 64 mm[Hg] Loc ation: LUE; Position: Sittin g Body height 2020-09-12 09:28:00 66 [in_us] Weight 2020-09-12 09:28:00 178.25 [lb_av] Body mass index (BMI) 2020-09-12 09:28:00 28.77 kg/m2 [Ratio] Heart Rate 2020-09-12 09:28:00 60 /min Systolic Blood Pressure 2020-09-04 11:52:00 155 mm[Hg] Diastolic Blood Pressure 2020-09-04 11:52:00 65 mm[Hg] Respiratory Rate 2020-09-04 11:52:00 18 /min Peripheral Pulse Rate 2020-09-04 11:52:00 59 /min Temperature Oral 2020-09-04 08:04:00 36.7 Arely Peripheral Pulse Rate 2020-09-04 08:04:00 60 /min Respiratory Rate 2020-09-04 08:04:00 17 /min Systolic Blood Pressure 2020-09-04 08:04:00 152 mm[Hg] Diastolic Blood Pressure 2020-09-04 08:04:00 72 mm[Hg] Temperature Oral 2020-09-04 03:00:00 36.7 Arely Peripheral Pulse Rate 2020-09-04 03:00:00 60 /min Respiratory Rate 2020-09-04 03:00:00 17 /min Systolic Blood Pressure 2020-09-04 03:00:00 168 mm[Hg] Diastolic Blood Pressure 2020-09-04 03:00:00 66 mm[Hg] Temperature Oral 2020-09-03 23:19:00 36.6 Arely Heart Rate Monitored 2020-09-02 15:00:00 60 /min Heart Rate Monitored 2020-09-02 11:00:00 60 /min Heart Rate Monitored 2020-09-02 07:00:00 60 /min Peripheral Pulse Rate 2020-08-24 11:00:00 60 /min Respiratory Rate 2020-08-24 11:00:00 14 /min Systolic Blood Pressure 2020-08-24 11:00:00 121 mm[Hg] Diastolic Blood Pressure 2020-08-24 11:00:00 61 mm[Hg] Peripheral Pulse Rate 2020-08-24 10:45:00 60 /min Respiratory Rate 2020-08-24 10:45:00 15 /min Systolic Blood Pressure 2020-08-24 10:45:00 119 mm[Hg] Diastolic Blood Pressure 2020-08-24 10:45:00 70 mm[Hg] Peripheral Pulse Rate 2020-08-24 10:30:00 60 /min Respiratory Rate 2020-08-24 10:30:00 14 /min Systolic Blood Pressure 2020-08-24 10:30:00 124 mm[Hg] Diastolic Blood Pressure 2020-08-24 10:30:00 67 mm[Hg] Temperature Non Contact 2020-08-24 07:00:00 36.5 Arely Systolic blood pressure 2020-08-02 12:45:00 122 mm[Hg] Diastolic blood pressure 2020-08-02 12:45:00 78 mm[Hg] Body height 2020-08-02 12:45:00 66 [in_us] Weight 2020-08-02 12:45:00 182 [lb_av] Body mass index (BMI) 2020-08-02 12:45:00 29.38 kg/m2 [Ratio] Heart Rate 2020-08-02 12:45:00 80 /min SYSTOLIC BLOOD PRESSURE 2017-09-30 17:30:00 161 mm[Hg] DIASTOLIC BLOOD PRESSURE 2017-09-30 17:30:00 70 mm[Hg] HEART RATE 2017-09-30 17:30:00 88 /min RESPIRATORY RATE 2017-09-30 16:22:00 22 /min BODY TEMPERATURE 2017-09-30 15:49:00 37.11 Arely OXYGEN SATURATION 2017-09-30 15:49:00 98 % WEIGHT 2017-09-30 05:46:00 91.4 kg HEIGHT 2017-09-29 07:19:00 175.3 cm SYSTOLIC BLOOD PRESSURE 2017-09-23 14:15:00 163 mm[Hg] DIASTOLIC BLOOD PRESSURE 2017-09-23 14:15:00 86 mm[Hg] HEART RATE 2017-09-23 14:15:00 70 /min OXYGEN SATURATION 2017-09-23 14:15:00 98 % RESPIRATORY RATE 2017-09-23 12:15:00 18 /min BODY TEMPERATURE 2017-09-23 09:05:00 36.61 Arely HEIGHT 2017-09-23 09:04:00 175.3 cm WEIGHT 2017-09-23 09:04:00 91.173 kg SYSTOLIC BLOOD PRESSURE 2016-09-22 20:30:00 162 mm[Hg] DIASTOLIC BLOOD PRESSURE 2016-09-22 20:30:00 74 mm[Hg] HEART RATE 2016-09-22 20:30:00 70 /min OXYGEN SATURATION 2016-09-22 20:30:00 99 % BODY TEMPERATURE 2016-09-22 10:52:00 36.61 Arely RESPIRATORY RATE 2016-09-22 10:52:00 16 /min HEIGHT 2016-09-22 10:52:00 174 cm WEIGHT 2016-09-22 10:52:00 85.7 kg Hospital Discharge Instructions Patient Cupcbozvq48/20/2021 11:31:49Femoropopliteal Bypass, Care AfterFemoropopliteal Bypass, Care AfterThis sheet gives you information about how to care for yourself after your procedure. Your healthcare provider may also give you more specific instructions. If you have problems or questions, contact your health care provider.What can I expect after the procedure?After the procedure, it is common to have: Discomfort or pain near the incisions. Swelling in your leg or foot. Numbness in your groin, lower leg, or foot.Follow these instructions at home:Incision care Follow instructions from your health care provider about how to take care of your incisions. Make sure you: Wash your hands with soap and water before and after you change your bandages (dressings). If soap and water arenot available, use hand single resource boss. Change your dressings as told by your health care provider.Leave stitches (sutures), skin glue, or adhesive strips in place. These skin closures may need to stay in place for 2 weeks or longer. If adhesive strip edges start to loosen and curl up, you may trim the loose edges. Do not remove adhesive strips completely unless your health care provider tells you to do that. Check your incision areas every day for signs of infection. Check for: More redness, swelling, or pain. Fluid or blood. Warmth. Pus or a bad smell.Medicines Take [id number] and prescription medicines only as told by your health care provider. If you were prescribed an antibiotic medicine, take it as told by your health care provider. Do not stop taking the antibiotic even if you start to feel better. Ask your health care provider if the medicine prescribed erma requires you to avoid driving or using heavy machinery.Activity Do not lift anything that is heavier than 10 lb (4.5 kg), or the limit that you are told, until your health care provider says that it is safe. Until your health care provider approves: Do not take long car trips. Do not travel by air. Avoid sitting for long periods of time. Change positions every 30 minutes. Do anyexercises that your health care providers have given you. These may include deep breathing, coughing, and walking exercises. Raise (elevate) your legs above the level of your heart while you are sitting or lying down. Return to your normal activities as told by your health care provider. Ask your health care provider what activities are safe for you.General instructions Do not drive for 24 hours if you were given a sedative during your procedure. Do not use any products that contain nicotine or tobacco, such as cigarettes, e-cigarettes, and chewing tobacco. These can delay healing aftersurgery. If you need help quitting, ask your health care provider. Do not take baths, swim, or use a hot tub until your health care provider approves. Ask your health care provider if you may take showers. You may only be allowed to take sponge baths. Wear compression stockings as told by your health care provider. These stockings help to prevent blood clots and reduce swelling in your legs.Keep all follow-up visits as told by your health care provider. This is important.Contact a health care provider if: Medicine does not help your pain. You feel nauseous or you vomit. You feel weak and tired for more than a week after your procedure. You have a fever or chills. You have more redness, swelling, or pain around an incision. You have fluid or blood coming from an incision. An incision feels warm to the touch. You have pus or a bad smell coming from an incision.Gethelp right away if: You have bleeding from an incision that does not stop after heavy pressure has been applied for 30 minutes. You have chest pain. You faint. You have dizziness. Your pain is severe. You are short of breath or you have trouble breathing. Your leg or foot becomes cold, pale, or numb. You have red streaks coming from an incision.Summary Change your dressingsas told by your health care provider. Check your incision areas every day for signs of infection.Do not lift anything that is heavier than 10 lb (4.5 kg), or the limit that you are told, until yourhealth care provider says that it is safe. Do any exercises that your health care providers have given you. These may include deep breathing, coughing, and walking exercises. Keep all follow-up visits as told by your health care provider. This is important.This information is not intended to replace advice given to you by your health care provider. Make sure you discuss any questions you have with your health care provider.Document Released: 08/16/2010 Document Revised: 10/03/2019 Document Reviewed: 10/03/2019[employer] Interactive Patient Education ? 2020 [place].11/21/2020 11:31:49[place] [place] Patient Safety: A Guide to Preventing Falls at Home (Custom)[facility] Patient Inf ormationPatient Safety: A Guide to Preventing Falls at HomeThe [facility] Patient InformationOriginal Date: 05/21/06 Revised date: 06/24/11Patient Safety: A Guide to Preventing Falls At Home Why is it important to prevent falls?Falls and the complications associated with falls are one of themost serious health problems facing the elderly. Preventing a fall is important to maintaining an active and independent lifestyle.Who is at risk for falls?Anyone can fall. No one wants to fall. Falls can occur in any age group; at any time and at any place. A fall can be a very serious and life threatening event for any person age 64 or older.Why do people fall?An unsafe environment may cause falls.An illness or physical condition may affect your strength and balance, making you more likely to fall. Some environmental factors that may cause falls are: Wet floors Loose carpets, tiles and throw rugs Equipment in halls or walkways Poor lighting Waxed floors Poor fitting or inadequate footwear Inappropriate use of assistive devices, canes, walkers, andwheelchairs Any other object at the floor level that a person can trip or slip onWhat illnesses or conditions make you unsteady on your feet or at risk for injury due to fall?Illness or conditions that may make you unsteady on your feet are: Poor vision/hearing Poor gait/mobility Muscle weakness Incontinence Syncope (dizziness) Low blood pressureLow blood sugar Seizures Poor nutrition/dehydration Medication reactions At risk for bleeding At risk for fractures Advanced age (>80)Standard [place] Order Number - [id number] Patient InformationOriginal Date: 05/21/06 Revised date: 06/24/11Patient Safety: A Guide to Preventing Falls At Home What should I tell my doctor? See your doctor as prescribed. See your eye doctor yearly. Tell your doctor if you have fallen and describe the circumstancesofthefall(s). Tell your doctor if you use any walker aids, such as a cane or awalker. Tell your doctor about any vision problems and any other medicalproblems you may have. Tell you doctor if you have any side effects from yourmedications. Take good care of your feet. Let your doctor know if you are taking laxatives.How can I make home safe? When getting out of bed, sit on the side of the bed before standingup. Place grab bars securely mounted in bathrooms around toilets,bath tubs, and shower areas. Place hand rails on both sides of stairwells. Make sure your home is well lit. Use night-lights in the bedroom, bathroom, hallways andstairways. Remove throw rugs, or fasten them to the floor carpet tape. Tack down carpet edges. Remove loose tiles. Remove electrical cords from pathways.Be sure to tell your doctor about all medications you are taking.Adapted from: Preventing Falls: Instructions for Patients and Families; [facility], April 2001 A Patient's Guide to Preventing Falls, The [place] [employer]s SocietyStandard [place] Order Number - [id number] 11:31:49Preventing Surgical Site Infections ([place]) (Custom)PREVENTING SURGICAL SITE INFECTIONSWhat can you do?Hand HygieneWashing your hands orusing an alcohol gel is the number one way to prevent infection.Always wash your hands or use an alco hol hand rub before you touch the surgical site. Make sure anyone else does the same before touching the surgical site.Caring for your surgical siteCare of your surgical site continues after you go home. There are some simple things that you can do to help prevent infection at your surgical site.Anyone who touches the surgical site, including yourself and healthcare providers, should wash hands, or use an alcohol hand rub, before and after touching the surgical site Cleanse the wound according to your doctors instructions. Do not remove the dressing unless your doctor has instructed you to do so. Avoid tub baths, soaking in water, or swimming until your surgeon tells you it is OK. Do not allow your pet to sit or lie on the surgical site. Make sure you are eating nutritiously. Stop tobacco use. Place clean linen where you will be sleeping. Keep the wound clean and dry.Report any redness or drainage to your surgeon immediately.MdawpexzMpmd21/20/2021 11:31:49Preventing High CholesterolPreventing High CholesterolCholesterol is a white, waxy substance similar to fat that the human body needs to help build cells. The liver makes all the cholesterol that a person's body needs. Having high cholesterol (hypercholesterolemia) increases a person's risk for heart disease and stroke. Extra (excess) cholesterol comes from the food the person eats.High cholesterol can often be prevented with diet and lifestyle changes. If you already have high cholesterol, you can control it with diet and lifestyle changes and with medicine.How can high cholesterol affect me?If you havehigh cholesterol, deposits (plaques) may build up on the south of your arteries. The arteries are the blood vessels that carry blood away from your heart.Plaques make the arteries narrower and stiffer.This can limit or block blood flow and cause blood clots to form. Blood clots: Are tiny balls of cells that form in your blood. Can move to the heart or brain, causing a heart attack or stroke.Lenny ques in arteries greatly increase your risk for heart attack and stroke.Making diet and lifestyle changes can reduce your risk for these conditions that may threaten your life.What can increase my risk?This condition is more likely to develop in people who: Eat foods that are high in saturated fator cholesterol. Saturated fat is mostly found in: Foods that contain animal fat, such as red meat and some dairy products. Certain fatty foods made from plants, such as tropical oils. Are overweight. Are not getting enough exercise. Have a family history of high cholesterol.What actions can I take to prevent this?Nutrition Eat less saturated fat. Avoid trans fats (partially hydrogenated oils). These are often found in margarine and in some baked goods, fried foods, and snacks bought in packages. Avoid precooked or cured meat, such as sausages or meat loaves. Avoid foods and drinks that have added sugars. Eat more fruits, vegetables, and whole grains. Choose healthy sources of protein, such as fish, poultry, lean cuts of red meat, beans, peas, lentils, and nuts. Choose healthy sources of fat, such as: Nuts. Vegetable oils, especially olive oil. Fish that have healthy fats (omega-3 fatty acids), such as mackerel or salmon.The items listed above may not be a complete list of recommended foods and beverages. Contact a dietitian for more information.Lifestyle Lose weight if you are overweight. Losing 510 lb (2.34.5 kg) can help prevent or control high cholesterol. It can also lower your risk for diabetes and high blood pressure. Ask your healthcare provider to help you with a diet and exercise plan to lose weight safely. Do not use any products that contain nicotine or tobacco, such as cigarettes, e-cigarettes, and chewing tobacco. If youneed help quitting, ask your health care provider. Limit your alcohol intake. Do not drink alcohol if: Your health care provider tells you not to drink. You are , may be , or are planning to become . If you drink alcohol: Limit how much you use to: 01 drink a day for women. 02 drinks a day for men. Be aware of how much alcohol is in your drink. In the [place] one drink equals one 12 oz bottle of beer (355 mL), one 5 oz glass of wine (148 mL), or one 1? oz glass of hard liquor (44 mL).Activity Get enough exercise. Each week, do at least 150 minutes of exercise that takes a medium level of effort (moderate-intensity exercise). This is exercise that: Makes your heart beat faster and makes you breathe harder than usual. Allows you to still be able to talk. You could exercise in short sessions several times a day or longer sessions a few times a week. For example, on 5 days each week, you could walk fast or ride your bike 3 times a day for 10 minutes each time. Do exercises as told by your health care provider.Medicines In addition to diet and lifestyle changes, your health care provider may recommend medicines to help lower cholesterol. This may be a medicine to lower the amount of cholesterol your liver makes. You mayneed medicine if: Diet and lifestyle changes do not lower your cholesterol enough. You have high cholesterol and other risk factors for heart disease or stroke. Take ufhl-nwj-jroxyhg and prescription medicines only as told by your health care provider.General information Manage your risk factors for high cholesterol. Talk with your health care provider about all your risk factors and how to lower your risk. Manage other conditions that you have, such as diabetes or high blood pressure(hypertension). Have blood tests to check your cholesterol levels at regular points in time as told by your health care provider. Keep all follow-up visits as told by your health care provider. This is important.Where to find more information [place] [employer]: www.heart.org National Heart, Lung, and Blood [place]: www.nhlbi.nih.govSummary High cholesterol increases your risk for heart disease and stroke. By keeping your cholesterol level low, you can reduce your risk for these conditions. High cholesterol can often be prevented with diet and lifestyle changes. Work with your health care provider to manage your risk factors, and have your blood tested regularly.Thisinformation is not intended to replace advice given to you by your health care provider. Make sure you discuss any questions you have with your health care provider.Document Released: 11/02/2016 Document Revised: 11/09/2019 Document Reviewed: 06/27/2017Elsevier Interactive Patient Education ? 2019 [place].11/21/2020 11:31:49Preventing HypertensionPreventing HypertensionHypertension, commonly called high blood pressure, is when the force of blood pumping through the arteries is too strong. Arteries are blood vessels that carry blood from the heart throughout the body. Over time, hypertension can damage the arteries and decrease blood flow to important parts of the body, including the brain, heart, and kidneys. Often, hypertension does not cause symptoms until blood pressure is very high. For this reason, it is important to have your blood pressure checked on a regular basis.Hypertension can often be prevented with diet and lifestyle changes. If you already have hypertension, you can controlit with diet and lifestyle changes, as well as medicine.What nutrition changes can be made?Maintain a healthy diet. This includes: Eating less salt (sodium). Ask your health care provider how much sodium is safe for you to have. The general recommendation is to consume less than 1 tsp (2,300 mg) ofsodium a day. Do not add salt to your food. Choose low-sodium options when grocery shopping and eating out. Limiting fats in your diet. You can do this by eating low-fat or fat-free dairy products and by eating less red meat. Eating more fruits, vegetables, and whole grains. Make a goal toeat: 1?2 cups of fresh fruits and vegetables each day. 34 servings of whole grains each day. Avoiding foods and beverages that have added sugars. Eating fish that contain healthy fats(omega-3 fatty acids), such as mackerel or salmon.If you need help putting together a healthy eatingplan, try the DASH diet. This diet is high in fruits, vegetables, and whole grains. It is low in sodium, red meat, and added sugars. DASH stands for Dietary Approaches to Stop Hypertension.What lifestyle changes can be made? Lose weight if you are overweight. Losing just 35% of your body weight can help prevent or control hypertension. For example, if your present weight is 200 lb (91 kg), aloss of 35% of your weight means losing 610 lb (2.74.5 kg). Ask your health care provider to help you with a diet and exercise plan to safely lose weight. Get enough exercise. Do at least 150 minutes of moderate-intensity exercise each week. You could do this in short exercise sessions several times a day, or you could do longer exercise sessions a few times a week. For example, youcould take a brisk 10-minute walk or bike ride, 3 times a day, for 5 days a week. Find ways to reduce stress, such as exercising, meditating, listening to music, or taking a yoga class. If you need help reducing stress, ask your health care provider. Do not smoke. This includes e-cigarettes. Chemicals in tobacco and nicotine products raise your blood pressure each time you smoke. If you need help quitting, ask your health care provider. Avoid alcohol. If you drink alcohol, limit alcohol inta ke to no more than 1 drink a day for non women and 2 drinks a day for men. One drink equals 12 oz of beer, 5 oz of wine, or 1? oz of hard liquor.Why are these changes important?Diet and lifestyle changes can help you prevent hypertension, and they may make you feel better overall and improve your quality of life. If you have hypertension, making these changes will help you control it and helpprevent major complications, such as: Hardening and narrowing of arteries that supply blood to: Your heart. This can cause a heart attack. Your brain. This can cause a stroke. Your kidneys.This can cause kidney failure. Stress on your heart muscle, which can cause heart failure.What can I do to lower my risk? Work with your health care provider to make a hypertension prevention plan that works for you. Follow your plan and keep all follow-up visits as told by your health care provider. Learn how to check your blood pressure at home. Make sure that you know your personal targetblood pressure, as told by your health care provider.How is this treated?In addition to diet and lifestyle changes, your health care provider may recommend medicines to help lower your blood pressure. You may need to try a few different medicines to find what works best for you. You also may need to take more than one medicine. Take devc-cpb-febkhki and prescription medicines only as told by your health care provider.Where to find supportYour health care provider can help you prevent hypertension and help you keep your blood pressure at a healthy level. Your local hospital or your community may also provide support services and prevention programs.The [place] [employer] offers an online support network at: http://supportnetwork.heart.org/gksl-utihy-rwsdvfddJuebu to find more informationLearn more about hypertension from: National Heart, Lung, and Blood [place]: www.nhlbi.nih.gov/health/health-topics/topics/hbp Centers for Disease Control and Prevention: www.cdc.gov/bloodpressure [place] [employer]: http://familydoctor.org/familydoctor/en/diseases-conditions /lhkm-pzjsc-vknfeprw.printerview.all.htmlLearn more about the DASH diet from: National Heart, Lung, and Blood [place]: www.nhlbi.nih.gov/health/health- topics/topics/dashContact a health care provider if: You think you are having a reaction to medicines you have taken. You have recurrent headaches or feel dizzy. You have swelling in your ankles. You have trouble with your vision.Summary Hypertension often does not cause any symptoms until blood pressure is very high. It is important to get your blood pressure checked regularly. Diet and lifestyle changes are the most importantsteps in preventing hypertension. By keeping your blood pressure in a healthy range, you can prevent complications like heart attack, heart failure, stroke, and kidney failure. Work with your health care provider to make a hypertension prevention plan that works for you.This information is not intended to replace advice given to you by your health care provider. Make sure you discuss any questions you have with your health care provider.Document Released: 11/02/2016 Document Revised: 2017 Document Reviewed: 2017[employer]vier Interactive Patient Education ? 2020 [place].11/21/2020 11:31:49Preventing Diabetes Mellitus ComplicationsPreventing Diabetes Mellitus ComplicationsYou can take action to prevent or slow down problems that are caused by diabetes (diabetes mellitus). Following your diabetes plan and taking care of yourself can reduce your risk of serious or life-threatening complications.What actions can I take to prevent diabetes complications?Manage your diabetes Follow instructions from your health care providers about managing your diabetes. Your diabetes may be managed by a team of health care providers who can teach you how to care for yourself and can answer questions that you have. Educate yourself about your condition so you can make healthy choices about eating and physical activity. Check your blood sugar (glucose) levels as often as directed. Your health care provider will help you decide how often to check your blood glucose level depending on your treatment goals and how well you are meeting them. Ask your health care provider if you should take low-dose aspirin daily and what dose is recommended for you. Taking low-dose aspirin daily is recommended to help prevent cardiovascular disease.Do not use nicotine or tobaccoDo not use any productsthat contain nicotine or tobacco, such as cigarettes and e-cigarettes. If you need help quitting, ask your health care provider. Nicotine raises your risk for diabetes problems. If you quit using nicotine: You will lower your risk for heart attack, stroke, nerve disease, and kidney disease. Your cholesterol and blood pressure may improve. Your blood circulation will improve.Keep your blood pressure under controlYour personal target blood pressure is determined based on: Your age. Yourmedicines. How long you have had diabetes. Any other medical conditions you have.To control your blood pressure: Follow instructions from your health care provider about meal planning, exercise, and medicines. Make sure your health care provider checks your blood pressure at every medical visit. Monitor your blood pressure at home as told by your health care provider.Keep your cholesterol under controlTo control your cholesterol: Follow instructions from your health care provider about meal planning, exercise, and medicines. Have your cholesterol checked at least once a year. You may be prescribed medicine to lower cholesterol (statin). If you are not taking a statin, ask your health care provider if you should be.Controlling your cholesterol may: Help prevent heart disease and stroke. These are the most common health problems for people with diabetes. Improve your blood flow.Schedule and keep yearly physical exams and eye examsYour health care provider will tell you how often you need medical visits depending on your diabetes management plan. Keep all follow-up vi sits as directed. This is important so possible problems can be identified early and complications can be avoided or treated. Every visit with your health care provider should include measuring your: Weight. Blood pressure. Blood glucose control. Your A1c (hemoglobin A1c) level should be checked: At least 2 times a year, if you are meeting your treatment goals. 4 times a year, ifyou are not meeting treatment goals or if your treatment goals have changed. Your blood lipids (lipid profile) should be checked yearly. You should also be checked yearly for protein in your urine (urine microalbumin). If you have type 1 diabetes, get an eye exam 35 years after you are diagnos ed, and then once a year after your first exam. If you have type 2 diabetes, get an eye exam as soon as you are diagnosed, and then once a year after your first exam.Keep your vaccines currentIt is recommended that you receive: A flu (influenza) vaccine every year. A pneumonia (pneumococcal) vaccine and a hepatitis B vaccine. If you are age 65 or older, you may get the pneumonia vaccine as aseries of two separate shots.Ask your health care provider which other vaccines may be recommended.Take care of your feetDiabetes may cause you to have poor blood circulation to your legs and feet. Because of this, taking care of your feet is very important. Diabetes can cause: The skin on the feet to get thinner, break more easily, and heal more slowly. Nerve damage in your legs and feet, which results in decreased feeling. You may not notice minor injuries that could lead to serious problems.To avoid foot problems: Check your skin and feet every day for cuts, bruises, redness, blisters, or sores. Schedule a foot exam with your health care provider once every year. This exam includes: Inspecting of the structure and skin of your feet. Checking the pulses and sensation in your feet. Make sure that your health care provider performs a visual foot exam at every medical visit.Take care of your teethPeople with poorly controlled diabetes are more likely to have gum (periodontal) disease. Diabetes can make periodontal diseases harder to control. If not treated, periodontal diseases can lead to tooth loss. To prevent this: Au Train your teeth twice a day. Floss at least oncea day. Visit your dentist 2 times a year.Drink responsiblyLimit alcohol intake to no more than 1 drink a day for non women and 2 drinks a day for men. One drink equals 12 oz of beer, 5 oz ofwine, or 1? oz of hard liquor.It is important to eat food when you drink alcohol to avoid low blood glucose (hypoglycemia). Avoid alcohol if you: Have a history of alcohol abuse or dependence. Are . Have liver disease, pancreatitis, advanced neuropathy, or severe hypertriglyceridemia.Lessen stressLiving with diabetes can be stressful. When you are experiencing stress, your blood glucose may be affected in two ways: Stress hormones may cause your blood glucose to rise. You may be distracted from taking good care of yourself.Be aware of your stress level and make changes to help you manage challenging situations. To lower your stress levels: Consider joining a support group. Do planned relaxation or meditation. Do a hobby that you enjoy. Maintain healthy relationships. Exercise regularly. Work with your health care provider or a mental health professional.Summary You can take action to prevent or slow down problems that are caused by diabetes (diabetes mellitus). Following your diabetes plan and taking care of yourself can reduce your risk of serious or life-threatening complications. Follow instructions from your health care providers about managing your diabetes. Your diabetes may be managed by a team of health care providers who can teach you how to care for yourself and can answer questions that you have. Your health care provider will tell you how often you need medical visits depending on your diabetes management plan. Keep all follow-up visits as directed. This is important so possible problems can be identified early and complications can be avoided or treated.This information is not intended to replace advice given to you by your health care provider. Make sure you discuss any questions you have with your health care provider.Document Released: 07/06/2012 Document Revised: 06/08/2018 Document Reviewed: 07/18/2017Salvad[employer] Interactive Patient Education ? 2020 [employer].Follow Up Care11/14/2020 21:19:02With: Anton BoothAddress:[facility] Cardiac, Thoracic, Vascular [address] [facility] [place] [address]- Business (1)When: 12/11/2020 10:30:00NameDatesDetailsInstructions not documentedPatient Epoesitoj70/06/2021 14:43:09Preventing Surgical Site Infections ([facility]) (CUSTOM)PREVENTING SURGICAL SITE INFECTIONSWhat can you do?Hand HygieneWashing your hands or using an alcohol gel is the number one way to prevent infection.Always wash your hands or use an alcohol hand rub before you touch the surgical site. Make sure anyone else does the same before touching the surgical site.Caring for your surgical siteCare of your surgical site continues after you go home. There are some simple things that you can do to help prevent infection at your surgical site. Anyone who touches the surgical site, including yourself and healthcare providers, should wash hands, or use an alcohol hand rub, before and after touching the surgical site Cleanse the wound according to your doctorsinstructions. Do not remove the dressing unless your doctor has instructed you to do so. Avoidtub baths, soaking in water, or swimming until your surgeon tells you it is OK. Do not allow your pet to sit or lie on the surgical site. Make sure you are eating nutritiously. Stop tobacco use. Place clean linen where you will be sleeping. Keep the wound clean and dry.Report any redness or drainage to your surgeon immediately.AhjujgvkFcpa92/06/2021 14:43:09Moderate Conscious Sedation, Adult, Care AfterModerate Conscious Sedation, Adult, Care AfterThese instructions provide you with information about caring for yourself after your procedure. Your health care provider may also give you more specific instructions. Your treatment has been planned according to current medical practices, but problems sometimes occur. Call your health care provider if you have any problems or questions after your procedure.What can I expect after the procedure?After your procedure, it is common: To feel sleepy for several hours. To feel clumsy and have poor balance for several hours. To have p oor judgment for several hours. To vomit if you eat too soon.Follow these instructions at home:For at least 24 hours after the procedure: Do not: Participate in activities where you could fallor become injured. Drive. Use heavy machinery. Drink alcohol. Take sleeping pills or medicines that cause drowsiness. Make important decisions or sign legal documents. Take care of children on your own. Rest.Eating and drinking Follow the diet recommended by your health care provider. If you vomit: Drink water, juice, or soup when you can drink without vomiting. Make sure you have little or no nausea before eating solid foods.General instructions Have a responsible adult stay with you until you are awake and alert. Take rpdb-wnu-rptqcyg and prescription medicines only as told by your health care provider. If you smoke, do not smoke without supervision. Keep all follow- up visits as told by your health care provider. This is important.Contact a health care provider if: You keep feeling nauseous or you keep vomiting. You feel light-headed. You develop a rash. You have a fever.Get help right away if: You have trouble breathing.This information is not intended to replace advice given to you by your health care provider. Make sure you discuss any questions you have with your health care provider.Document Released: 08/09/2014 Document Revised: 03/23/2017 Document Reviewed: 02/07/2017Ashlyn Interactive Patient Education ? 2020 [employer].11/07/2020 14:43:09Cardiac Catheterization Femoral Access Discharge Instructions ([facility]ly [facility]) (CUS [place])Post Cardiac Catherization Discharge InstructionsCarolinProv[facility] CenterCardiac Catheterization-Femoral Access:1. No lifting greater than 10 pounds for 1 week.2. No strenuous activity for 1 week.3. Cover site with band aid for 3 days. After 3 days the site does not need to be covered.4. No submer tomas or tub baths for 1 week.5. You may shower after discharge. Avoid letting shower stream hit directly on site.6. No driving for 48 hours after procedure.7. Call [facility] for any signs of infection. (Redness, swelling, drainage from site, or fever.)8. Hold pressure on site and seek care for bleeding.A follow-up appointment will be made for 1-2 weeks after your procedure.If you havea question, concern, or any problem with your site during your recovery, please contact [facility] at [phone] during normal business hours. For after hours concerns, please call [facility] paging rock drill operator at [phone].The doctor responsible for your care is ([place]):Dr. Shaji Cosme [facility]10/23/2020 13:42:49With: Eyal SampleAddress: [facility] [place] [address]- Business (1)When: 11/08/2020 10:45:00No data available for this section NameDatesDetailsInstructions not documentedNameDatesDetailsInstructions not documentedNameDatesDetailsInstructions not documentedPatient Kimgqnxnt44/03/2020 14:28:29Your Role in Safe Medication Use ([facility]) (Custom)Your Role in Safe Medication UseYou are part of your healthcare team and share the responsibility of safe medication use. The role of the health care practitioner and pharmacist is to decide which medicine is best for you by selecting the proper dose, dispensing correctly and labeling clearly. Your role is to take the medicine as prescribed and to learn as much as you can about why you are taking the medicineand what to expect from taking the medication.Points to remember:1. Take medications exactly as prescribed. Do not skip, reduce or stop doses unless your physician/provider tells you to do so.2. Keep medications in their original container if possible, if you place them in a medication organizer keep the original container.3. Do not share prescription medicine with others.4. Do not take any medications in a dark or poorly lit room.5. If you are not provided information about your medications, informyour health care provider.6. It is recommended that only one pharmacy be utilized in obtaining your medications.7. Keep an up to date medication list with you at all times, provide the list to those whom help in your medical care. If the medications are changed or stopped between visits to a health care provider make sure to remember to update your list. Do not forget to include over the counter medications, vitamins and herbal supplements.8. Contact your health care provider if you are concerned about any reaction to or adverse effects from your medications.9. Inform the health care provider of any allergies.10. Take all prescription and nonprescription medicines with you to all medical appointments or health care services. The most accurate medication list is obtained when the medication bottles or medication list is taken to each appointment or service.11. Read labels slowly and carefully. Ifthe label instructions are different from what your health care provider instructed, confirm the correct instructions.12. Dont be afraid to ask questions if there is a difference in the shape or color of the medication between refills.13. Medications can have more than one name. Raise questions if you do not recognize the name of the medications.AncaggfkGvde12/03/2020 14:28:29Preventing Surgical Site Infections ([facility]) (Custom)PREVENTING SURGICAL SITE INFECTIONSWhat can you do?Hand HygieneWashing your hands or using an alcohol gel is the number one way to prevent infection.Always wash your hands or use an alcohol hand rub before you touch the surgical site. Make sure anyone else does the same before touching the surgical site.Caring for your surgical siteCare of your surgical site continues after you go home. There are some simple things that you can do to help prevent infection at your surgical site. Anyone who touches the surgical site, including yourself and healthcare providers, should wash hands, or use an alcohol hand rub, before and after touching the surgical site Cleanse the wound according to your doctors instructions. Do not remove the dressing unless your doctor has instructed you to do so. Avoid tub baths, soaking in water, or swimming until your surgeon tells you it is OK. Do not allow your pet to sit or lie on the surgical site. Make sure youare eating nutritiously. Stop tobacco use. Place clean linen where you will be sleeping. Keep the wound clean and dry.Report any redness or drainage to your surgeon immediately.WfsztgwiLmmj05/0 01/2020 14:28:29Cardioverter Defibrillator Implantation, Care AfterCardioverter Defibrillator Implantation, Care AfterThis sheet gives you information about how to care for yourself after your procedure. Your health care provider may also give you more specific instructions. If you have problems or questions, contact your health care provider.What can I expect after the procedure?After the procedure, it is common to have: Some pain. It may last a few days. A slight bump over the skin where the device was placed. Sometimes, it is possible to feel the device under the skin. This is normal.Duringthe months and years after your procedure, your health care provider will check the device, the leads , and the battery every few months. Eventually, when the battery is low, the device will be replaced.Follow these instructions at home:Medicines Take bknd-oqe-lgtwzpj and prescription medicines onlyas told by your health care provider. If you were prescribed an antibiotic medicine, take it as told by your health care provider. Do not stop taking the antibiotic even if you start to feel better.Incision care Follow instructions from your health care provider about how to take care of your incision area. Make sure you: Wash your hands with soap and water before you change your bandage (dressing). If soap and water are not available, use hand single resource boss. Change your dressing as told by your health care provider. Leave stitches (sutures), skin glue, or adhesive strips in place. Theseskin closures may need to stay in place for 2 weeks or longer. If adhesive strip edges start to loosen and curl up, you may trim the loose edges. Do not remove adhesive strips completely unless your [facility] care provider tells you to do that. Check your incision area every day for signs of infection. Check for: More redness, swelling, or pain. More fluid or blood. Warmth. Pus or a bad smell. Do not use lotions or ointments near the incision area unless told by your health care provider. Keep the incision area clean and dry for 23 days after the procedure or for as long as told by your health care provider. It takes several weeks for the incision site to heal completely. Do not take baths, swim, or use a hot tub until your health care provider approves.Activity Try to walk a little every day. Exercising is important after this procedure. Also, use your shoulder on theside of the defibrillator in daily tasks that do not require a lot of motion. For at least 6 weeks: Do not lift your upper arm above your shoulders. This means no tennis, golf, or swimming for this period of time. If you tend to sleep with your arm above your head, use a restraint to prevent this during sleep. Avoid sudden jerking, pulling, or chopping movements that pull your upper arm far away from your body. Ask your health care provider when you may go back to work. Check with your health care provider before you start to drive or play sports.Electric and magnetic enriquez Tell all health care providers that you have a defibrillator. This may prevent them from giving you an MRIscan because strong magnets are used for that test. If you must pass through a metal detector, quickly walk through it. Do not stop under the detector, and do not stand near it. Avoid places or objects that have a strong electric or magnetic field, including: Airport security chavez. At the airport, let officials know that you have a defibrillator. Your defibrillator ID card will let you be checked in a way that is safe for you and will not damage your defibrillator. Also, do not let a security person wave a magnetic wand near your defibrillator. That can make it stop working. Power plants. Large electrical generators. Anti-theft systems or electronic article surveillance (EAS). Radiofrequency transmission towers, such as cell phone and radio towers. Do not use amateur (ham) radio equipment or electric (arc) welding torches. Some devices are safe to use if held at least 12inches (30 cm) from your defibrillator. These include power tools, lawn mowers, and speakers. If you are unsure if something is safe to use, ask your health care provider. Do not use MP3 player headphones. They have magnets. You may safely use electric blankets, heating pads, computers, and microwave ovens. When using your cell phone, hold it to the ear that is on the opposite side from the defibrillator. Do not leave your cell phone in a pocket over the defibrillator.General instructions Follow diet instructions from your health care provider, if this applies. Always keep your defibrillator ID card with you. The card should list the implant date, device model, and manager of drilling. Consider wearing a medical alert bracelet or necklace. Have your defibrillator checked every 36 months or as often as told by your health care provider. Most defibrillators last for 48 years. Keep all follow-up visits as told by your health care provider. This is important for your health careprovider to make sure your chest is healing the way it should. Ask your health care provider when you should come back to have your stitches or yefri taken out.Contact a health care provider if: You feel one shock in your chest. You gain weight suddenly. Your legs or feet swell more than they have before. It feels like your heart is fluttering or skipping beats (heart palpitations). You have more redness, swelling, or pain around your incision. You have more fluid or blood comingfrom your incision. Your incision feels warm to the touch. You have pus or a bad smell coming from your incision. You have a fever.Get help right away if: You have chest pain. You feel more than one shock. You feel more short of breath than you have felt before. You feel more light-headed than you have felt before. Your incision starts to open up.This information is not intended to replace advice given to you by your health care provider. Make sure you discuss any questions you have with your health care provider.Document Released: 05/08/2006 Document Revised: 01/07/2018 Document Reviewed: 03/25/2017Ashlyn Interactive Patient Education ? 2019 [employer].09/04/2020 14:28:29Wound InfectionWound InfectionA wound infection happens when tiny organisms (microorganisms) startto grow in a wound. A wound infection is most often caused by bacteria. Infection can cause the wound to break open or worsen. Wound infection needs treatment. If a wound infection is left untreated, complications can occur. Untreated wound infections may lead to an infection in the bloodstream (septicemia) or a bone infection (osteomyelitis).What are the causes?This condition is most often caused by bacteria growing in a wound. Other microorganisms, like yeast and fungi, can also cause wound infections.What increases the risk?The following factors may make you more likely to develop this condition: Having a weak body defense system (immune system). Having diabetes. Taking steroid medicines for a long time (chronic use). Smoking. Being an older person. Being overweight. Taking chemotherapy medicines.What are the signs or symptoms?Symptoms of this condition include: Havingmore redness, swelling, or pain at the wound site. Having more blood or fluid at the wound site. A bad smell coming from a wound or bandage (dressing). Having a fever. Feeling tired or fatigued. Having warmth at or around the wound. Having pus at the wound site.How is this diagnosed?This condition is diagnosed with a medical history and physical exam. You may also have a wound culture or blood tests or both.How is this treated?This condition is usually treated with an antibiotic medicine. The infection should improve 2448 hours after you start antibiotics. After 2448 hours, redness around the wound should stop spreading, and the wound should be less painful.Follow these instructions at home:Medicines Take or apply wdeq-rit-qihdhmj and prescription medicines only as told by your health care provider. If you were prescribed an antibiotic medicine, take or apply it as told by your health care provider. Do not stop using the antibiotic even if you start to feel better.Wound care Clean the wound each day, or as told by your health care provider. Wash the wound with mild soap and water. Rinse the wound with water to remove all soap. Pat the wound dry with a clean towel. Do not rub it. Follow instructions from your health care provider about how totake care of your wound. Make sure you: Wash your hands with soap and water before and after you change your dressing. If soap and water are not available, use hand single resource boss. Change your dressing as told by your health care provider. Leave stitches (sutures), skin glue, or adhesive strips inplace if your wound has been closed. These skin closures may need to stay in place for 2 weeks or longer. If adhesive strip edges start to loosen and curl up, you may trim the loose edges. Do not remove adhesive strips completely unless your health care provider tells you to do that. Some wounds are left open to heal on their own. Check your wound every day for signs of infection. Watch for: More redness, swelling, or pain. More fluid or blood. Warmth. Pus or a bad smell.General instructions Keep the dressing dry until your health care provider says it can be removed. Do not take baths, swim, or use a hot tub until your health care provider approves. Ask your health care provider if you may take showers. You may only be allowed to take sponge baths. Raise (elevate) the injured area above the level of your heart while you are sitting or lying down. Do not scratch or pick at the wound. Keep all follow-up visits as told by your health care provider. This is important.Contact a health care provider if: Your pain is not controlled with medicine. You have more redness, swelling, or pain around your wound. You have more fluid or blood coming from your wound.Your wound feels warm to the touch. You have pus coming from your wound. You continue to notice a bad smell coming from your wound or your dressing. Your wound that was closed breaks open.Get help right away if: You have a red streak going away from your wound. You have a fever.Summary A wound infection happens when tiny organisms (microorganisms) start to grow in a wound. This condition is usually treated with an antibiotic medicine. Follow instructions from your health careprovider about how to take care of your wound. Contact a health care provider if your wound infection does not begin to improve in 2448 hours, or your symptoms worsen. Keep all follow-up visits as told by your health care provider. This is important.This information is not intended to replaceadvice given to you by your health care provider. Make sure you discuss any questions you have with your health care provider.Document Released: 07/17/2004 Document Revised: 05/31/2019 Document Reviewed: 05/31/2019Elsevier Interactive Patient Education ? 2019 [employer].09/04/2020 14:28:29HematomaHem atomaA hematoma is a collection of blood under the skin, in an organ, in a body space, in a joint space, or in other tissue. The blood can thicken (clot) to form a lump that you can see and feel. The lump is often firm and may become sore and tender. Most hematomas get better in a few days to weeks. However, some hematomas may be serious and require medical care. Hematomas can range from very small to very large.What are the causes?This condition is caused by: A blunt or penetrating injury. A leakage from a blood vessel under the skin. Some medical procedures, including surgeries, such as oral surgery, face lifts, and surgeries on the joints. Some medical conditions that cause bleedingor bruising. There may be multiple hematomas that appear in different areas of the body.What increases the risk?You are more likely to develop this condition if: You are an older adult. You use blood thinners.What are the signs or symptoms?Symptoms of this condition depend on where the hematoma is located.Common symptoms of a hematoma that is under the skin include: A firm lump on the body. Pain and tenderness in the area. Bruising. Blue, dark blue, purple-red, or yellowish skin (discoloration) may appear at the site of the hematoma if the hematoma is close to the surface of the skin.Common symptoms of a hematoma that is deep in the tissues or body spaces may be less obvious. They include: A collection of blood in the stomach (intra-abdominal hematoma). This may cause pain in the abdomen, weakness, fainting, and shortness of breath. A collection of blood in the head (intracranial hematoma). This may cause a headache or symptoms such as weakness, trouble speaking or understan ding, or a change in consciousness.?How is this diagnosed?This condition is diagnosed based on: Your medical history. A physical exam. Imaging tests, such as an ultrasound or CT scan. These may be needed if your health care provider suspects a hematoma in deeper tissues or body spaces. Blood tests. These may be needed if your health care provider believes that the hematoma is caused by a medical condition.How is this treated?Treatment for this condition depends on the cause, size, and location of the hematoma. Treatment may include: Doing nothing. The majority of hematomas do not need treatment as many of them go away on their own over time. Surgery or close monitoring. This may be needed for large hematomas or hematomas that affect vital organs. Medicines. Medicines may be given if there is an underlying medical cause for the hematoma.Follow these instructions at home:Managing pain, stiffness, and swelling If directed, put ice on the affected area. Put ice in a plastic bag. Place a towel between your skin and the bag. Leave the ice on for 20 minutes, 23 times a day for the first couple of days. If directed, apply heat to the affected area after applyingice for a couple of days. Use the heat source that your health care provider recommends, such as a moist heat pack or a heating pad. Place a towel between your skin and the heat source. Leave theheat on for 2030 minutes. Remove the heat if your skin turns bright red. This is especially important if you are unable to feel pain, heat, or cold. You may have a greater risk of getting burned. Raise (elevate) the affected area above the level of your heart while you are sitting or lying down. If told, wrap the affected area with an elastic bandage. The bandage applies pressure (compression) to the area, which may help to reduce swelling and promote healing. Do not wrap the bandage tootightly around the affected area. If your hematoma is on a leg or foot (lower extremity) and is painful, your health care provider may recommend crutches. Use them as told by your health care provider.General instructions Take gzfe-wrv-kwsteqg and prescription medicines only as told by your health care provider. Keep all follow-up visits as told by your health care provider. This is important.Contact a health care provider if: You have a fever. The swelling or discoloration gets worse. You develop more hematomas.Get help right away if: Your pain is worse or your pain is not controlled with medicine. Your skin over the hematoma breaks or starts bleeding. Your hematoma is in your chest or abdomen and you have weakness, shortness of breath, or a change in consciousness.You have a hematoma on your scalp that is caused by a fall or injury, and you also have: A headache that gets worse. Trouble speaking or understanding speech. Weakness. Change in alertness or consciousness.Summary A hematoma is a collection of blood under the skin, in an organ, in a body space, in a joint space, or in other tissue. This condition usually does not need treatment because many hematomas go away on their own over time. Large hematomas, or those that may affect vitalorgans, may need surgical drainage or monitoring. If the hematoma is caused by a medical condition, medicines may be prescribed. Get help right away if your hematoma breaks or starts to bleed, you have shortness of breath, or you have a headache or trouble speaking after a fall.This information is not intended to replace advice given to you by your health care provider. Make sure you discuss any questions you have with your health care provider.Document Released: 06/02/2005 Document Revised: 03/24/2019 Document Reviewed: 03/24/2019Elsevier Interactive Patient Education ? 2020 [employer].FollowUp Care09/01/2020 22:30:11With: Shaniqua ParkAddress: [facility] [id number] [place] [address] Business (1)When: 09/12/2020 09:15:00[facility] [address] [address]- Business (1)When: UnknownComments: Appointment with the [facility] in [place] in 1 week. [facility].With: Unable to reach MD, [place] [facility] [phone][place]Address: UnknownWhen: UnknownWith: Problems - call MD during office hoursAddress: UnknownWhen: Unknown NameDatesDetailsInstructions not documentedPatient Bmvgdixxr58/23/2020 10:50:57Sedation, Moderate, Adult ([id number])Sedation, Moderate, AdultModerate sedation is given to help you relax or even sleep through a procedure. You may remain sleepy, be clumsy, or have poor balance for several hours following this procedure. Arrange for a responsible adult, family member, or friend to take you home. A responsible adult should stay with you for at least24 hours or until the medicines have worn off.? Do not participate in any activities where you couldbecome injured for the next 24 hours, or until you feel normal again. Do not: Drive. Swim. Ride a bicycle. Operate heavy machinery. Cook. Use power tools. Climb ladders. Work [place].? Do not make important decisions or sign legal documents until you are improved.? Vomiting may occur if you eat too soon. When you can drink without vomiting, try water, juice, or soup. Try solid foods if you feel little or no nausea.? Only take dqqw-rjc-erpoytn or prescription medications for pain, discomfort, or fever as directed by your caregiver. If pain medications have been prescribed for you, ask your caregiver how soon it is safe to take them.? Make sure you and your family fully understands everything about the medication given to you. Make sure you understand what side effects may occur.? You should not drink alcohol, take sleeping pills, or medications that cause drowsiness forat least 24 hours.? If you smoke, do not smoke alone.? If you are feeling better, you may resume normal activities 24 hours after receiving sedation.? Keep all appointments as scheduled. Follow all instructions.? Ask questions if you do not understand.SEEK MEDICAL CARE IF:? Your skin is pale or bluishin color.? You continue to feel sick to your stomach (nauseated) or throw up (vomit).? Your pain is getting worse and not helped by medication.? There is bleeding or swelling.? You are still sleepy or feeling clumsy after 24 hours.? You have an oral temperature above 102? F (38.9? C).SEEK IMMEDIATE MEDICAL CARE IF:? You develop a rash.? You have difficulty breathing.? You develop any type of allergicproblem.? You have an oral temperature above 102? F (38.9? C), not controlled by medicine.Document Released: 07/14/2002 Document Re-Released: 04/08/2011ExitCare? Patient Information ?2011 [employer] XR.08/24/2020 10:50:57Preventing Surgical Site Infections ([facility]) (CUSTOM)PREVENTING SURGICAL SITE INFECTIONSWhat can you do?Hand HygieneWashing your hands or using an alcohol gel is the number one way to prevent infection.Always wash your hands or use an alcohol hand rub before you touch the surgical site. Make sure anyone else does the same before touching the surgical site.Caring for your surgical siteCare of your surgical site continues after you go home. There are some simple things thatyou can do to help prevent infection at your surgical site. Anyone who touches the surgical site,including yourself and healthcare providers, should wash hands, or use an alcohol hand rub, before and after touching the surgical site Cleanse the wound according to your doctors instructions. Do not remove the dressing unless your doctor has instructed you to do so. Avoid tub baths, soaking in water, or swimming until your surgeon tells you it is OK. Do not allow your pet to sit or lie on the surgical site. Make sure you are eating nutritiously. Stop tobacco use. Place clean linen where you will be sleeping. Keep the wound clean and dry.Report any redness or drainage to your surgeon immediately.DjhixlrwUypi79/23/2020 10:50:57Guidelines for Patients Post Electrophysiology Procedure - Generator Change Discharge Instructions ([facility]) (CUSTOM)Guidelines for Patients Post Electrophysiology Procedure - Generator Change Discharge InstructionsCarSturdy Memorial Hospital CenterGenerator Change? Apply an ice pack to the site for the next 24 hours; alternating 20 minutes on the site and 20 minutes off the site.? There is a special dressing (Aquacell) covering your incision site. DO NOT remove it. It will be removed at your follow-up appointment. Please call the office if it begins to peel up, falls off, or has new drainage that is visible to have another dressingplaced and your site evaluated.? ?If you have Dermabond, your incision site will have a clear/glossyappearance from the incision glue used to close the skin. Do not scratch, scrub, or try to remove glue. It will fall off over the next 10-14 days.? ?If the edges of your dressing pucker, dimple, are loose, or beings to peel, cover procedure site (from the top of your shoulder blade to 3-4 inches belowyour incision) with plastic wrap (for 1 weekdelete) to protect incision site from direct contact with the shower stream until evaluated at [facility].? No driving for 48 hours after the procedure.? Call [facility] immediately if your incision pulls apart/open, has drainage, redness, swelling, or you develop a fever/elevated temperature which could indicate an infection at the site.? If you see a suture sticking out of your incision, DO NOT remove it yourself. Call [facility] for your doctor to?remove it.? You can take Tylenol for soreness or discomfort per instructions on bottle.? You may shower 48 hours after the procedure.After the completion of your recovery period, you should be able to return to a full and active lifestyle. If you have any quest ions/concerns, please write them down so they can be discussed at your follow-up appointment.If you have a question, concern, or any problems with your site during the recovery phase, you may contact [facility] at [phone] during normal business hours. For after hour concerns, please call [facility] paging rock drill operator at [phone] to page the elcctrophysiologist kaitlynn.The doctor responsible for your care is ([place]):? Dr. Snider? Dr. Faulkner have received the above discharge instructions and information.Follow Up Care08/02/2020 14:51:44With: Tamara HoskinsAddress: [facility] [place] [address]- Business (1)When: 08/31/2020 13:00:00Comments: Follow up with Tamara Hoskins at [facility] on August 31, 2020 at 1:00pm.No data available for this sectionNameDatesDetailsInstructions not documented
== END 2020-11-26 03:17 | disposition home or self-care (01) ==
LOC: ER 22:53
DX: R11.2 Nausea with vomiting, unspecified (principal); I25.10 Atherosclerotic heart disease of native coronary artery without angina pectoris; I10 Essential (primary) hypertension; E11.9 Type 2 diabetes mellitus without complications; Z79.01 Long term (current) use of anticoagulants; Z79.891 Long term (current) use of opiate analgesic; Z91.018 Allergy to other foods; Z88.8 Allergy status to other drugs, medicaments and biological substances; Z88.0 Allergy status to penicillin
CPT/HCPCS: 93005; 99285; 36415; 83690; 85025; 82270; 80053; 84484; 71045; 93010; A9270